=== PATIENT | male | born 1935 | race Caucasian/White ===

== ENCOUNTER 2020-09-01 14:26 | Emergency (ER) | payer MEDICARE, OTHER ==
[~2020-09-01] VITALS: Ht 177.8 cm; Wt 90.7 kg
[~2020-09-01 14:26] MED LIST: ASPI81EC PO; CYCL10 PO; DOXA4 PO; LISI20 PO; METO100ER PO; METO25 PO; MULVITMINF PO; NAPR250 PO; NITR.6SL SL; OMEP20ER PO; SENN187 PO; SIMV40 PO
[2020-09-01] MEDS ORDERED: COLCRYS0.6 MG (15:30)
== END 2020-09-01 16:14 | disposition home or self-care (01) ==
LOC: ER 14:26
DX: S72.051A Unspecified fracture of head of right femur, initial encounter for closed fracture (principal); I12.9 Hypertensive chronic kidney disease with stage 1 through stage 4 chronic kidney disease, or unspecified chronic kidney disease; N18.30 Chronic kidney disease, stage 3 unspecified; K21.9 Gastro-esophageal reflux disease without esophagitis; E78.5 Hyperlipidemia, unspecified; I25.810 Atherosclerosis of coronary artery bypass graft(s) without angina pectoris; Z88.8 Allergy status to other drugs, medicaments and biological substances; Z79.82 Long term (current) use of aspirin; Z79.899 Other long term (current) drug therapy; Z95.1 Presence of aortocoronary bypass graft; Z95.5 Presence of coronary angioplasty implant and graft; Z87.891 Personal history of nicotine dependence; W05.2XXA Fall from non-moving motorized mobility scooter, initial encounter
CPT/HCPCS: 99283

== ENCOUNTER 2020-09-30 14:13 | Emergency (ER) | payer OTHER, MEDICARE ==
[~2020-09-30] VITALS: Ht 177.8 cm; Wt 90.7 kg
[~2020-09-30 14:13] MED LIST changes: +COLCRYS0.6 MG
[2020-09-30 14:46] LABS: BASOPHILS ABSOLUTE AUTO 0.04 K/mm3 (0.00-0.23); BASOPHILS PERCENT AUTO 1 % (0-2); EOSINOPHILS ABSOLUTE AUTO 0.16 K/mm3 (0.00-0.68); EOSINOPHILS PERCENT AUTO 3 % (0-6); Hematocrit 48.2 % (37.0-53.0); IMMATURE GRAN ABSOLUTE AUTO 0.02 K/mm3 (0.00-0.10); IMMATURE GRAN PERCENT AUTO 0 % (0-1); LYMPHOCYTES ABSOLUTE AUTO 0.93 K/mm3 (0.84-5.20); LYMPHOCYTES PERCENT AUTO 17 % (21-46); MONOCYTES ABSOLUTE AUTO 0.62 K/mm3 (0.16-1.47); MONOCYTES PERCENT AUTO 12 % (4-13); Mean Corpuscular HGB 27.3 pg (26.0-34.0); Mean Corpuscular HGB Conc 31.1 g/dL (31.5-36.5); Mean Corpuscular Volume 88 fL (80-100); Mean Platelet Volume 11.5 fL (9.1-12.4); NEUTROPHILS ABSOLUTE AUTO 3.56 K/mm3 (1.96-9.15); NEUTROPHILS PERCENT AUTO 67 % (41-73); Platelet Count 159 K/mm3 (150-400); RDW Coefficient Variation 14.3 % (11.7-14.2); RDW Standard Deviation 46.2 fL (35.1-46.3); White Blood Cell Count 5.33 K/mm3 (4.00-11.30)
[2020-09-30 15:43] LABS: Alanine Aminotransfer (ALT/SGP 19 U/L (12-78); Albumin, Blood 3.5 g/dL (3.4-5.0); Albumin/Globulin Ratio 0.9 (0.8-1.8); Alk Phos 109 U/L (50-136); Anion Gap 4 mmol/L (6-16); Aspartate Aminotrans (AST/SGOT 25 U/L (12-37); Bilirubin, Total 0.4 mg/dL (0.1-1.0); Blood Urea Nitrogen 27 mg/dL (8-24); CO2, Blood 26 mmol/L (21-32); Calcium, Blood 9.1 mg/dL (8.5-10.1); Chloride, Blood 110 mmol/L (98-108); Creatinine, Blood 1.08 mg/dL (0.60-1.20); Glomerular Filtration Rate >60 (60-); Glucose, Blood 105 mg/dL (70-99); Potassium, Blood 4.8 mmol/L (3.5-5.5); Sodium, Blood 140 mmol/L (136-145); Total Protein, Blood 7.5 g/dL (6.4-8.2)
[2020-09-30] MEDS ORDERED: MECL25 PO (17:38)
== END 2020-09-30 18:20 | disposition home or self-care (01) ==
LOC: ER 14:13
PROVIDERS: Physician Assistant
DX: R42 Dizziness and giddiness (principal); I12.9 Hypertensive chronic kidney disease with stage 1 through stage 4 chronic kidney disease, or unspecified chronic kidney disease; N18.30 Chronic kidney disease, stage 3 unspecified; K21.9 Gastro-esophageal reflux disease without esophagitis; E78.5 Hyperlipidemia, unspecified; Z95.1 Presence of aortocoronary bypass graft; Z95.5 Presence of coronary angioplasty implant and graft; Z79.82 Long term (current) use of aspirin; Z87.891 Personal history of nicotine dependence; Z79.899 Other long term (current) drug therapy
CPT/HCPCS: 80053; 84484; 85025; 93005; 93010; 99284-25

== ENCOUNTER 2021-09-14 13:18 | Inpatient (IN) | payer OTHER ==
[~2021-09-14] VITALS: Ht 177.8 cm; Wt 83.8 kg
[~2021-09-14 13:18] MED LIST changes: -ASPI81EC PO; +Aspir 8181 MG PO; +CENTRUM SILVER1 EAC2 PO; -LISI20 PO; +MECL25 PO; -MULVITMINF PO
[2021-09-14 14:00] LABS: BASOPHILS ABSOLUTE AUTO 0.04 K/mm3 (0.00-0.23); BASOPHILS PERCENT AUTO 1 % (0-2); EOSINOPHILS ABSOLUTE AUTO 0.03 K/mm3 (0.00-0.68); EOSINOPHILS PERCENT AUTO 0 % (0-6); Hematocrit 38.8 % (37.0-53.0); Hemoglobin 12.4 g/dL (13.5-17.5); IMMATURE GRAN ABSOLUTE AUTO 0.03 K/mm3 (0.00-0.10); IMMATURE GRAN PERCENT AUTO 0 % (0-1); LYMPHOCYTES PERCENT AUTO 8 % (21-46); MONOCYTES ABSOLUTE AUTO 0.68 K/mm3 (0.16-1.47); MONOCYTES PERCENT AUTO 9 % (4-13); Mean Corpuscular HGB 27.1 pg (26.0-34.0); Mean Corpuscular Volume 85 fL (80-100); Mean Platelet Volume 10.8 fL (9.1-12.4); NEUTROPHILS ABSOLUTE AUTO 6.63 K/mm3 (1.96-9.15); NEUTROPHILS PERCENT AUTO 83 % (41-73); Platelet Count 212 K/mm3 (150-400); RDW Coefficient Variation 15.7 % (11.7-14.2); RDW Standard Deviation 48.9 fL (35.1-46.3); Red Blood Cell Count 4.57 M/mm3 (4.30-5.90); White Blood Cell Count 8.01 K/mm3 (4.00-11.30)
[2021-09-14 14:23] LABS: Alanine Aminotransfer (ALT/SGP 20 U/L (12-78); Albumin, Blood 2.6 g/dL (3.4-5.0); Albumin/Globulin Ratio 0.6 (0.8-1.8); Alk Phos 92 U/L (50-136); Anion Gap 7 mmol/L (6-16); Aspartate Aminotrans (AST/SGOT 34 U/L (12-37); Bilirubin, Total 0.4 mg/dL (0.1-1.0); Blood Urea Nitrogen 54 mg/dL (8-24); Bun/Creatinine Ratio 50.5 (12.0-20.0); CO2, Blood 24 mmol/L (21-32); Calcium, Blood 9.6 mg/dL (8.5-10.1); Chloride, Blood 109 mmol/L (98-108); Creatinine, Blood 1.07 mg/dL (0.60-1.20); Globulin, Blood 4.3 g/dL (2.2-4.0); Glomerular Filtration Rate >60 (60-); Glucose, Blood 116 mg/dL (70-99); Sodium, Blood 140 mmol/L (136-145); Total Protein, Blood 6.9 g/dL (6.4-8.2); Troponin I <0.015 ng/mL (0.000-0.040)
[2021-09-14 15:40] LABS: Source, Urine Clean Catch
[2021-09-14 15:58] LABS: Appearance, Urine Turbid (Clear); Bilirubin, Urine Neg (Neg); Blood, Urine 5+ (Neg); Color, Urine Brown (P-Yellow); Glucose Qualitative, Urine Neg (Neg); Ketones, Urine 2+ (Neg); Leukocyte Esterase, Urine 3+ (Neg); Nitrite, Urine Neg (Neg); Protein, Urine 3+ (Neg); Urobilinogen, Urine NORM (Normal)
[2021-09-14 16:39] LABS: Red Blood Cells, Urine 50-100 /hpf (0-2)
[2021-09-14 16:41] LABS: Bacteria Few /hpf; Squamous Epithelial Cells Few /hpf (Few)
[2021-09-14 18:48] LABS: SARS-Cov-2 (COVID-19) PCR, MMC NEGATIVE (NEGATIVE)
[2021-09-14 19:40] LABS: Creatine Kinase MB 13.1 ng/mL (0.0-3.6); Creatine Kinase MB Index 2.5 (0.0-4.0)
[2021-09-15 05:01] LABS: BASOPHILS ABSOLUTE AUTO 0.03 K/mm3 (0.00-0.23); BASOPHILS PERCENT AUTO 1 % (0-2); EOSINOPHILS ABSOLUTE AUTO 0.14 K/mm3 (0.00-0.68); EOSINOPHILS PERCENT AUTO 2 % (0-6); Hematocrit 37.4 % (37.0-53.0); Hemoglobin 11.9 g/dL (13.5-17.5); IMMATURE GRAN ABSOLUTE AUTO 0.02 K/mm3 (0.00-0.10); IMMATURE GRAN PERCENT AUTO 0 % (0-1); LYMPHOCYTES ABSOLUTE AUTO 0.59 K/mm3 (0.84-5.20); LYMPHOCYTES PERCENT AUTO 10 % (21-46); MONOCYTES ABSOLUTE AUTO 0.68 K/mm3 (0.16-1.47); MONOCYTES PERCENT AUTO 11 % (4-13); Mean Corpuscular HGB 26.8 pg (26.0-34.0); Mean Corpuscular HGB Conc 31.8 g/dL (31.5-36.5); Mean Corpuscular Volume 84 fL (80-100); Mean Platelet Volume 11.4 fL (9.1-12.4); NEUTROPHILS PERCENT AUTO 76 % (41-73); Platelet Count 194 K/mm3 (150-400); RDW Coefficient Variation 15.8 % (11.7-14.2); RDW Standard Deviation 48.6 fL (35.1-46.3); Red Blood Cell Count 4.44 M/mm3 (4.30-5.90); White Blood Cell Count 5.96 K/mm3 (4.00-11.30)
[2021-09-15 05:52] LABS: Alanine Aminotransfer (ALT/SGP 18 U/L (12-78); Albumin, Blood 2.2 g/dL (3.4-5.0); Albumin/Globulin Ratio 0.7 (0.8-1.8); Alk Phos 80 U/L (50-136); Anion Gap 9 mmol/L (6-16); Aspartate Aminotrans (AST/SGOT 41 U/L (12-37); Bilirubin, Total 0.5 mg/dL (0.1-1.0); Blood Urea Nitrogen 40 mg/dL (8-24); Bun/Creatinine Ratio 51.2 (12.0-20.0); CO2, Blood 23 mmol/L (21-32); Calcium, Blood 8.8 mg/dL (8.5-10.1); Chloride, Blood 112 mmol/L (98-108); Creatinine, Blood 0.78 mg/dL (0.60-1.20); Globulin, Blood 3.2 g/dL (2.2-4.0); Glomerular Filtration Rate >60 (60-); Glucose, Blood 88 mg/dL (70-99); Potassium, Blood 3.8 mmol/L (3.5-5.5); Sodium, Blood 144 mmol/L (136-145); Total Protein, Blood 5.4 g/dL (6.4-8.2)
--- NOTE | 2021-09-15 06:25 | NUR ---
PT RECEIVED FROM ED ON A STRETCHER. AA&OX2-3. PT IS ON RA WITH SATS IN THE LOW 90S.PT ADMITTED FOR RT LEG CELLULITIS. PT HAS A LOT OF BLISTERS AND OPEN SORES ON BLT EXTREMETIES. PT WAS GIVEN A PARTIAL BED BATH HE WAS DIRTY UPON ARRIVAL. OPEN WOUNDS CLEANED WITH WOUND BULK FOLDER, PICTURES TAKEN AND STORED IN PT CHART. PT HAS A STAGE 1 ULCER ON THE SACRUM. WOUND CLEANED AND COVERED WITH MEDIPLEX. IV ABX ADMINISTERED. FLUIDS PRESENTLY INFUSING. PT HAD A DARK COLOR URINE IN THE URINAL UPON ARRIVAL. URINE OUTPUT WAS 290ML. ADLS PROVIDED, SAFETY MEASURES IN PLACE. WILL CONTINUE TO MONITOR.
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
[2021-09-16 04:45] LABS: Hematocrit 38.1 % (37.0-53.0); Hemoglobin 12.1 g/dL (13.5-17.5); Mean Corpuscular HGB 26.8 pg (26.0-34.0); Mean Corpuscular HGB Conc 31.8 g/dL (31.5-36.5); Mean Corpuscular Volume 85 fL (80-100); Mean Platelet Volume 10.8 fL (9.1-12.4); Platelet Count 202 K/mm3 (150-400); RDW Standard Deviation 49.2 fL (35.1-46.3); Red Blood Cell Count 4.51 M/mm3 (4.30-5.90)
[2021-09-16 05:27] LABS: Alanine Aminotransfer (ALT/SGP 13 U/L (12-78); Albumin, Blood 2.2 g/dL (3.4-5.0); Albumin/Globulin Ratio 0.6 (0.8-1.8); Alk Phos 75 U/L (50-136); Anion Gap 8 mmol/L (6-16); Aspartate Aminotrans (AST/SGOT 32 U/L (12-37); Bilirubin, Total 0.4 mg/dL (0.1-1.0); Blood Urea Nitrogen 33 mg/dL (8-24); Bun/Creatinine Ratio 41.1 (12.0-20.0); CO2, Blood 24 mmol/L (21-32); CPK Creatine Kinase 269 U/L (39-308); Calcium, Blood 8.9 mg/dL (8.5-10.1); Chloride, Blood 111 mmol/L (98-108); Creatine Kinase MB 4.7 ng/mL (0.0-3.6); Creatine Kinase MB Index 1.7 (0.0-4.0); Globulin, Blood 3.4 g/dL (2.2-4.0); Glomerular Filtration Rate >60 (60-); Glucose, Blood 94 mg/dL (70-99); Potassium, Blood 3.6 mmol/L (3.5-5.5); Sodium, Blood 143 mmol/L (136-145); Total Protein, Blood 5.6 g/dL (6.4-8.2)
--- NOTE | 2021-09-16 07:44 | NUR ---
PATIENT REQUIRED APAP TWICE OVERNIGHT FOR BILAT. LEG PAIN (R>L) AND RIGHT HIP AND FOOT PAIN. R. LEG LOOKS ANGRY, BUT PATIENT SAID "LOOKS MUCH BETTER TO HIM" NO OTHER CHANGES NOTED
--- NOTE | 2021-09-16 18:25 | NUR ---
Alert and oriented x2 . C/O right hip pain 04/15 , tylenol 650 mg po was given, it was effective. vital signs are stable. Silvadene cream applied to right foot. Ordered a nystain cream for sores on groin area. Continue on ceftriaxone for cellulitis. Two persons extensive assist with bed mobility and repositioning . Call appropriately and call light within reach.Continue to monitor.
--- NOTE | 2021-09-17 04:58 | NUR ---
PT HAS BEEN RESTING FOR MOST OF THE NIGHT. C/O HIP PAIN TREATED PER EMAR. PT REMAINS ON BEDREST WITH ALARM ON. ALERT AND ORIENTED X4. PT SCROTAL ULCURS WERE TREATED PER EMAR WELL. IV REPLACED. NO OTHER EVENTS TRHOUGH THE NIGHT. BED IN LOW POSITION AND STAFF WILL CONT TO MONITOR.
--- NOTE | 2021-09-17 17:40 | NUR ---
SHIFT SUMMARY PATIENT ALERT AND ORIENTED THIS SHIFT. PATIENT IS A 1 ASSIST WITH FWW TO CHAIR AND COMODE. PATIENT UP TO CHAIR FOR MEALS, BACK TO BED BETWEEN MEALS. NO ACUTE CHANGES THIS SHIFT. WOUND CLINIC NURSE IN THE ROOM THIS AFTERNOON TO ASSESS AND DRESS PATIENT'S WOUNDS. PATIENT CURRENTLY SITTING UP IN BED WATCHING TELEVISION.
--- NOTE | 2021-09-18 03:53 | NUR ---
SHIFT SUMMARY JACOBO SLEPT MOST OF THE SHIFT. HE C/O BACK PAIN AND RECEIVED PRN TRAMADOL. HE HAS A HX OF FALLING, BED ALARM IN PLACE. PRESSURE ULCERS TO COCCYX AND SCROTUM. IV IN LEFT UPPER ARM. HE IS A&O 3-4, AWARE OF LOCATION/PERSON/EVENTS, BUT AWAITING PLACEMENT DUE TO INABILITY TO COMPLETE ADL'S INDEPENDENTLY. IV ACCESS IN LEFT UPPER ARM. BED ALARM IN PLACE, WILL CONTNUE TO MONITOR.
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
[2021-09-19 05:06] LABS: Hematocrit 36.3 % (37.0-53.0); Hemoglobin 11.5 g/dL (13.5-17.5); Mean Corpuscular HGB 26.9 pg (26.0-34.0); Mean Corpuscular HGB Conc 31.7 g/dL (31.5-36.5); Mean Corpuscular Volume 85 fL (80-100); Mean Platelet Volume 10.6 fL (9.1-12.4); Platelet Count 189 K/mm3 (150-400); RDW Coefficient Variation 15.9 % (11.7-14.2); RDW Standard Deviation 49.7 fL (35.1-46.3); Red Blood Cell Count 4.28 M/mm3 (4.30-5.90); White Blood Cell Count 7.02 K/mm3 (4.00-11.30)
[2021-09-19 05:36] LABS: Anion Gap 5 mmol/L (6-16); Blood Urea Nitrogen 25 mg/dL (8-24); Bun/Creatinine Ratio 29.8 (12.0-20.0); CO2, Blood 29 mmol/L (21-32); Calcium, Blood 8.3 mg/dL (8.5-10.1); Chloride, Blood 107 mmol/L (98-108); Creatinine, Blood 0.84 mg/dL (0.60-1.20); Glomerular Filtration Rate >60 (60-); Glucose, Blood 97 mg/dL (70-99); Potassium, Blood 3.7 mmol/L (3.5-5.5); Sodium, Blood 141 mmol/L (136-145)
--- NOTE | 2021-09-19 07:29 | NUR ---
SHIFT SUMMARY VSS. NO ACUTE CHANGES.
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
[2021-09-20 05:12] LABS: Hematocrit 36.1 % (37.0-53.0); Hemoglobin 11.6 g/dL (13.5-17.5); Mean Corpuscular HGB 26.9 pg (26.0-34.0); Mean Corpuscular HGB Conc 32.1 g/dL (31.5-36.5); Mean Corpuscular Volume 84 fL (80-100); Mean Platelet Volume 10.7 fL (9.1-12.4); Platelet Count 204 K/mm3 (150-400); RDW Coefficient Variation 15.7 % (11.7-14.2); RDW Standard Deviation 47.8 fL (35.1-46.3); Red Blood Cell Count 4.31 M/mm3 (4.30-5.90); White Blood Cell Count 6.19 K/mm3 (4.00-11.30)
[2021-09-20 06:14] LABS: Anion Gap 7 mmol/L (6-16); Blood Urea Nitrogen 26 mg/dL (8-24); Bun/Creatinine Ratio 32.2 (12.0-20.0); CO2, Blood 27 mmol/L (21-32); Calcium, Blood 8.6 mg/dL (8.5-10.1); Chloride, Blood 106 mmol/L (98-108); Creatinine, Blood 0.81 mg/dL (0.60-1.20); Glomerular Filtration Rate >60 (60-); Glucose, Blood 95 mg/dL (70-99); Potassium, Blood 3.8 mmol/L (3.5-5.5); Sodium, Blood 140 mmol/L (136-145)
--- NOTE | 2021-09-20 18:50 | NUR ---
SHIFT SUMMARY PT A/O X4; PLEASANT AND COOPERATIVE WITH CARE. ADMITTED WITH MULTIPLE WOUNDS/VASCULAR ULCERS AND CELLULITIS TO R LEG. PT ALSO HAS AN OLD R HIP FX THAT ORTHO HAS BEEN CONSULTED FOR. DR. NELSON CAME AND CONSULTED FOR THE VASCULAR ULCERS. POSSIBLE ANGIOGRAM TO BE DONE TOMORROW. VSS. WILL REPORT TO ABIMAEL ZAMORA.
--- NOTE | 2021-09-21 05:08 | NUR ---
SHIFT SUMMARY; AOX3, COOPERATIVE WITH CARE. RLE DRESSING STAYED DRY AND INTACT ALL NIGHT. C/O PAIN AND BURNING OFF AND ON IN THE RLE, ULTRAM GIVEN ACOUPLE OF TIMES WHICH HELPED TO RELEIVE IT. NPO AFTER MN FOR POSSIBLE ANGIOGRAM IN AM. REPOSITIONING OFTEN TO RELEIVE PRESSURE ON COCCYX. CONTINENT OF URINE WITH URINAL. VS WNL, AFEBRILE. WILL CONTINUE TO MONITOR AND PROVIDE CARE. CALL LIGHT IN REACH.
[2021-09-21 08:10] LABS: Hematocrit 36.1 % (37.0-53.0); Hemoglobin 11.6 g/dL (13.5-17.5); Mean Corpuscular HGB 27.2 pg (26.0-34.0); Mean Corpuscular HGB Conc 32.1 g/dL (31.5-36.5); Mean Corpuscular Volume 85 fL (80-100); Mean Platelet Volume 10.6 fL (9.1-12.4); Platelet Count 190 K/mm3 (150-400); RDW Coefficient Variation 15.6 % (11.7-14.2); RDW Standard Deviation 47.7 fL (35.1-46.3); Red Blood Cell Count 4.27 M/mm3 (4.30-5.90); White Blood Cell Count 6.17 K/mm3 (4.00-11.30)
[2021-09-21 08:32] LABS: Anion Gap 6 mmol/L (6-16); Blood Urea Nitrogen 25 mg/dL (8-24); Bun/Creatinine Ratio 32.5 (12.0-20.0); CO2, Blood 28 mmol/L (21-32); Calcium, Blood 8.7 mg/dL (8.5-10.1); Chloride, Blood 107 mmol/L (98-108); Creatinine, Blood 0.77 mg/dL (0.60-1.20); Glomerular Filtration Rate >60 (60-); Glucose, Blood 101 mg/dL (70-99); Potassium, Blood 3.6 mmol/L (3.5-5.5); Sodium, Blood 141 mmol/L (136-145)
--- NOTE | 2021-09-21 14:50 | NUR ---
PATIENT TO [facility] FOR ANGIO OF RLE. BELONGINGS REMAIN IN ROOM. WILL TRANFER TO PCU ROOM WHEN BED AVAILABLE.
--- NOTE | 2021-09-21 19:25 | NUR ---
TRANSFER NOTE RECEIVED REPORT FROM SERA SAMAYOA ON MEDICAL. BEDSIDE REPORT FROM TECHNOLOGY DEVELOPMENT INTERN, PT TO ROOM AT 1824. LEFT GROIN SITE C/D/I SCANT AMOUNT OF BLOOD NOTED; NO BLEEDING, BRUISING OR HEMATOMA NOTED. RIGHT PEDAL PULSE LANIE DRESSING HAS HALF DOLLAR SIZE BLOOD NOTED; NO CHANGES SINCE ADMITTED TO ROOM. PULSE FAINT BLE. VSS. NO OTHER ACUTE CHANGES NOTED DURING SHIFT. REPORT GIVEN TO RN ASSUMING CARE.
[2021-09-22 03:55] LABS: BASOPHILS ABSOLUTE AUTO 0.03 K/mm3 (0.00-0.23); BASOPHILS PERCENT AUTO 0 % (0-2); EOSINOPHILS ABSOLUTE AUTO 0.12 K/mm3 (0.00-0.68); EOSINOPHILS PERCENT AUTO 2 % (0-6); Hematocrit 34.7 % (37.0-53.0); Hemoglobin 11.2 g/dL (13.5-17.5); IMMATURE GRAN ABSOLUTE AUTO 0.02 K/mm3 (0.00-0.10); IMMATURE GRAN PERCENT AUTO 0 % (0-1); LYMPHOCYTES ABSOLUTE AUTO 0.86 K/mm3 (0.84-5.20); LYMPHOCYTES PERCENT AUTO 12 % (21-46); MONOCYTES ABSOLUTE AUTO 0.62 K/mm3 (0.16-1.47); MONOCYTES PERCENT AUTO 9 % (4-13); Mean Corpuscular HGB Conc 32.3 g/dL (31.5-36.5); Mean Corpuscular Volume 84 fL (80-100); Mean Platelet Volume 10.7 fL (9.1-12.4); NEUTROPHILS PERCENT AUTO 76 % (41-73); Platelet Count 179 K/mm3 (150-400); RDW Coefficient Variation 15.4 % (11.7-14.2); RDW Standard Deviation 46.9 fL (35.1-46.3); Red Blood Cell Count 4.15 M/mm3 (4.30-5.90); White Blood Cell Count 6.95 K/mm3 (4.00-11.30)
[2021-09-22 04:13] LABS: Alanine Aminotransfer (ALT/SGP 14 U/L (12-78); Albumin, Blood 1.8 g/dL (3.4-5.0); Albumin/Globulin Ratio 0.4 (0.8-1.8); Alk Phos 71 U/L (50-136); Anion Gap 7 mmol/L (6-16); Aspartate Aminotrans (AST/SGOT 18 U/L (12-37); Bilirubin, Total 0.3 mg/dL (0.1-1.0); Blood Urea Nitrogen 25 mg/dL (8-24); Bun/Creatinine Ratio 31.4 (12.0-20.0); CO2, Blood 25 mmol/L (21-32); Calcium, Blood 8.8 mg/dL (8.5-10.1); Chloride, Blood 106 mmol/L (98-108); Globulin, Blood 4.1 g/dL (2.2-4.0); Glomerular Filtration Rate >60 (60-); Glucose, Blood 109 mg/dL (70-99); Potassium, Blood 3.5 mmol/L (3.5-5.5); Sodium, Blood 138 mmol/L (136-145); Total Protein, Blood 5.9 g/dL (6.4-8.2)
--- NOTE | 2021-09-22 05:41 | NUR ---
SHIFT SUMMARY ASSUMED CARE OF PT AT 1900. PT IS A/OX3 WITH TIMES OF CONFUSION. HEART SOUNDS REGULAR, LUNG SOUNDS CLEAR. PT WAS CONTIENT OF URINE. ABD IS DISTENDED AND FIRM, PT STATES THAT HE FEELS LIKE HE HAS GAS, PT DID HAVE A BM THIS SHIFT. PT HAS WOUNDS ON HIS COPCCYX AND SCROTUM. MEPILEX APPLIED. PT HAS N/T IN LOWER EXTREMITES. PULSES ARE FAINT. PT HAS EXTENSIVE WOUNDS ON HIS LEGS, PICTURES IN CHART. NEW DRESSINGS APPLIED. ANGIO SITES ON L GROIN AND R FOOT HAVE MINIMAL DRAINAGE. PT C/O PAIN IN R LEG, MEDICATED PER EMAR. PT HAS A TEMP OF 100.3 THIS AM, PT WAS COOLED DOWN WITH A FAN AND ICE AND IS NOW AT 98.8. CALL LIGHT IN REACH, BED IN LOWEST POSITION, BED ALARM ON.
--- NOTE | 2021-09-22 11:37 | NUR ---
INITIAL ASSESSMENT: Patient is awake, alert, and oriented. Patient C/O minimal 2/10 lower back pain. HRR. LS dim t/o, biox wnl on ra. BT +. PPP, faint and thready to RLE via doppler. Patient has bulky gaze dressing with jermaine wrap CDI to RLE. shilpa dressing with opsite to right pedal area, moderate amount of dried blood noted. VSS. Patient denies other needs at this time. Call light in reach. Will continue to monitor.
--- NOTE | 2021-09-22 16:57 | NUR ---
SHIFT SUMMARY: PATIENT HAS BEEN RESTING IN BED T/O SHIFT WITH NO ADVERSE EVENTS. PROMOTED TO MED STATUS THIS AFTERNOON. PAIN CONTROLLED. REPORTS ITCHING OF LEG. FAMILY MEMBER CAME TO VISIT THIS AFTERNOON. WILL LIKELY D/C TO [facility] REQUIRES MORE SUPPORT THAN CAN BE PROVIDED IN HOME A FEW TIMES A WEEK.
--- NOTE | 2021-09-22 19:00 | NUR ---
DAY SHIFT SUMMARY PCU TRANSFER TO MED FLOOR, REPORT TAKEN BY KAYLEE ZAMORA. PT PLEASANT ON ARRIVAL, ALERT/ORIENTED, STATES HE HOPES HE CAN GET SOME SLEEP. ORIENTED TO ROOM AND SURROUNDINGS.
--- NOTE | 2021-09-23 06:03 | NUR ---
SHIFT SUMMARY PATIENT ALERT AND ORIENTED. HAD NO COMPLAINTS OF PAIN OR SHORTNESS OF BREATH. SLEPT WELL. NO ACUTE ISSUES NOTED OVERNIGHT. CALL LIGHT WITHIN REACH. REPORT GIVEN TO ONCOMING RN.
--- NOTE | 2021-09-23 08:00 | NUR ---
pt laying in bed awake, a/ox3, pleasant and cooperative with care, follows commands well, reports some pain to rle, lungs are clear in uppers and dim in bases, resp even and unlabored, no cough noted, hrr, tele in place running sr with pac's and pvc's per monitor, see strip, no edema noted, ppp faint cap refill <3sec, vs stable, afebrile, piv site is clear and patent, s.l. btx4, abd flat soft nontender, voids without diff, skin c/w/d, maew, rodolfo, call light in reach.
[2021-09-23 09:02] LABS: BASOPHILS ABSOLUTE AUTO 0.03 K/mm3 (0.00-0.23); BASOPHILS PERCENT AUTO 0 % (0-2); EOSINOPHILS ABSOLUTE AUTO 0.18 K/mm3 (0.00-0.68); EOSINOPHILS PERCENT AUTO 2 % (0-6); Hematocrit 34.8 % (37.0-53.0); Hemoglobin 11.1 g/dL (13.5-17.5); IMMATURE GRAN ABSOLUTE AUTO 0.03 K/mm3 (0.00-0.10); IMMATURE GRAN PERCENT AUTO 0 % (0-1); LYMPHOCYTES ABSOLUTE AUTO 0.89 K/mm3 (0.84-5.20); LYMPHOCYTES PERCENT AUTO 11 % (21-46); MONOCYTES ABSOLUTE AUTO 0.73 K/mm3 (0.16-1.47); MONOCYTES PERCENT AUTO 9 % (4-13); Mean Corpuscular HGB 26.9 pg (26.0-34.0); Mean Corpuscular HGB Conc 31.9 g/dL (31.5-36.5); Mean Corpuscular Volume 84 fL (80-100); Mean Platelet Volume 11.4 fL (9.1-12.4); NEUTROPHILS ABSOLUTE AUTO 5.97 K/mm3 (1.96-9.15); NEUTROPHILS PERCENT AUTO 76 % (41-73); Platelet Count 185 K/mm3 (150-400); RDW Coefficient Variation 15.4 % (11.7-14.2); RDW Standard Deviation 47.2 fL (35.1-46.3); Red Blood Cell Count 4.13 M/mm3 (4.30-5.90); White Blood Cell Count 7.83 K/mm3 (4.00-11.30)
[2021-09-23 09:19] LABS: Anion Gap 7 mmol/L (6-16); Blood Urea Nitrogen 24 mg/dL (8-24); Bun/Creatinine Ratio 31.3 (12.0-20.0); CO2, Blood 26 mmol/L (21-32); Chloride, Blood 106 mmol/L (98-108); Creatinine, Blood 0.77 mg/dL (0.60-1.20); Glomerular Filtration Rate >60 (60-); Glucose, Blood 100 mg/dL (70-99); Potassium, Blood 3.5 mmol/L (3.5-5.5); Sodium, Blood 139 mmol/L (136-145)
[2021-09-23] MEDS ORDERED: ACET325 PO (10:49)
[2021-09-23] MEDS ORDERED: ATOR40TA PO (10:49)
[2021-09-23] MEDS ORDERED: IBUP800 PO (10:50)
[2021-09-23] MEDS ORDERED: LEVFLO500 PO (10:52)
[2021-09-23 10:53] LABS: Influenza A, PCR NEGATIVE (NEGATIVE); Influenza B, PCR NEGATIVE (NEGATIVE); Resp Syncytial Virus, PCR NEGATIVE (NEGATIVE); SARS-Cov-2 (COVID-19) PCR, MMC NEGATIVE (NEGATIVE)
[2021-09-23] MEDS ORDERED: NYSTATIN15 GM TOP (10:53)
[2021-09-23] MEDS ORDERED: PROM25 PO (10:54)
[2021-09-23] MEDS ORDERED: TRAM50 PO (11:01)
[2021-09-23] MEDS ORDERED: TAMS.4ER PO (11:37)
[2021-09-23] MEDS ORDERED: SILVADENE20 G3 TOP (11:39)
[2021-09-23] MEDS ORDERED: METOPROLOL TART50 M3 PO (11:43)
[2021-09-23] MEDS ORDERED: GABA300 PO (11:44)
[2021-09-23] MEDS ORDERED: DICLOFENAC SOD100 G1 TOP (11:46)
[2021-09-23] MEDS ORDERED: Vitamin B-121000 MCG PO (11:46)
[2021-09-23] MEDS ORDERED: Vitamin D1000 UNI1 PO (11:47)
--- NOTE | 2021-09-23 15:31 | NUR ---
PT WAS TO BE TRANSFERED TO SNF, BUT WILL NEED TO WAIT FOR INSURANCE APPROVAL, CALL LIGHT IN REACH.
--- NOTE | 2021-09-23 19:02 | NUR ---
pt has pain in right le, has been medicated for it several times today. speaking on the phone this evening. no acute changes this shift. call light in reach.
--- NOTE | 2021-09-24 05:25 | NUR ---
SHIFT SUMMARY PATIENT ALERT AND ORIENTED. HAD NO COMPLAINTS OF PAIN OR SHORTNESS OF BREATH. NO ACUTE ISSUES NOTED OVERNIGHT. CALL LIGHT WITHIN REACH. REPORT GIVEN TO ONCOMING RN.
[2021-09-24 14:12] LABS: Influenza A, PCR NEGATIVE (NEGATIVE); Influenza B, PCR NEGATIVE (NEGATIVE); Resp Syncytial Virus, PCR NEGATIVE (NEGATIVE); SARS-Cov-2 (COVID-19) PCR, MMC NEGATIVE (NEGATIVE)
--- NOTE | 2021-09-24 15:36 | NUR ---
DISCHARGE NOTE PT IS AOX4. PT IV REMOVED BY THIS RN PER DOCUMENTATION. PT DC PAPERWORK COMPLETED BY STRAND GALVANIZER. VERBAL ORDERS WRITTEN AND SIGNED BY PHYSICIAN FOR SOME DC MEDICATIONS AND PLACED ON CHART. [facility] AND GAVE REPORT TO SERA MARIA ON PT STATUS. PT ASSISTED INTO WHEELCHAIR BY MOHS SURGEON/GENERAL DERMATOLOGIST. PT BELONGINGS GATHERED AND SENT WITH TRANSP[facility]TER AND [facility] TO [facility]. [facility].
== END 2021-09-24 15:55 | disposition home or self-care (01) | DRG 253 ==
LOC: ER 13:18 → PCU 17:37 → MEDS 17:37 → PCU 09-21 15:47 → MEDS 09-22 17:55
PROVIDERS: Emergency Medicine; Internal Medicine; ADMIT Internal Medicine
PROC: 047K3Z1 Dilation of Right Femoral Artery using Drug-Coated Balloon, Percutaneous Approach (ICD-10-PCS; principal; 2021-09-21)
PROC: 047M3Z1 Dilation of Right Popliteal Artery using Drug-Coated Balloon, Percutaneous Approach (ICD-10-PCS; 2021-09-21)
PROC: 04FM3ZZ Fragmentation of Right Popliteal Artery, Percutaneous Approach (ICD-10-PCS; 2021-09-21)
DX: I70.221 Atherosclerosis of native arteries of extremities with rest pain, right leg (principal); L03.116 Cellulitis of left lower limb; M87.9 Osteonecrosis, unspecified; M62.82 Rhabdomyolysis; M87.88 Other osteonecrosis, other site; Z16.29 Resistance to other single specified antibiotic; N39.0 Urinary tract infection, site not specified; L03.115 Cellulitis of right lower limb; G93.49 Other encephalopathy; I70.201 Unspecified atherosclerosis of native arteries of extremities, right leg; D63.8 Anemia in other chronic diseases classified elsewhere; I10 Essential (primary) hypertension; B96.20 Unspecified Escherichia coli [E. coli] as the cause of diseases classified elsewhere; N18.30 Chronic kidney disease, stage 3 unspecified; K21.9 Gastro-esophageal reflux disease without esophagitis; M10.9 Gout, unspecified; I73.9 Peripheral vascular disease, unspecified; I12.9 Hypertensive chronic kidney disease with stage 1 through stage 4 chronic kidney disease, or unspecified chronic kidney disease; E78.5 Hyperlipidemia, unspecified; N40.0 Benign prostatic hyperplasia without lower urinary tract symptoms; Z85.51 Personal history of malignant neoplasm of bladder; Z95.1 Presence of aortocoronary bypass graft; Z98.890 Other specified postprocedural states; W18.30XA Fall on same level, unspecified, initial encounter; E86.0 Dehydration
CPT/HCPCS: 0241U; 36415; 70450; 71045; 73502; 73562-RT; 75625; 75710; 75716; 76937; 80048; 80053; 81001; 82550; 82553; 83880; 84443; 84484; 85025; 85027; 85347; 87077; 87086; 87186; 93005; 93010; 93880; 93926; 96365; 96367; 97110; 97116; 97162; 97166; 97530; 97535; 99152; 99153; 99285-25; A9270; C1725; C1760; C1769; C1887; C1894; C2623; C9764; J0690; J0696; J1644; J1650; J2250; J3010; J7030; J7050; Q9967; U0004

== ENCOUNTER 2021-10-16 08:27 | Inpatient (IN) | payer OTHER ==
[~2021-10-16] VITALS: Ht 177.8 cm; Wt 80.0 kg
[~2021-10-16 08:27] MED LIST changes: +ACET325 PO; +ATOR40TA PO; +DICLOFENAC SOD100 G1 TOP; +GABA300 PO; +IBUP800 PO; +LEVFLO500 PO; +METOPROLOL TART50 M3 PO; +NYSTATIN15 GM TOP; +PROM25 PO; +SILVADENE20 G3 TOP; +TAMS.4ER PO; +TRAM50 PO; +Vitamin B-121000 MCG PO; +Vitamin D1000 UNI1 PO
[2021-10-16 09:20] LABS: BASOPHILS ABSOLUTE AUTO 0.04 K/mm3 (0.00-0.23); BASOPHILS PERCENT AUTO 0 % (0-2); EOSINOPHILS PERCENT AUTO 1 % (0-6); Hematocrit 34.9 % (37.0-53.0); IMMATURE GRAN ABSOLUTE AUTO 0.06 K/mm3 (0.00-0.10); IMMATURE GRAN PERCENT AUTO 1 % (0-1); LYMPHOCYTES PERCENT AUTO 5 % (21-46); MONOCYTES ABSOLUTE AUTO 0.73 K/mm3 (0.16-1.47); MONOCYTES PERCENT AUTO 6 % (4-13); Mean Corpuscular HGB 26.4 pg (26.0-34.0); Mean Corpuscular HGB Conc 31.5 g/dL (31.5-36.5); Mean Corpuscular Volume 84 fL (80-100); Mean Platelet Volume 11.5 fL (9.1-12.4); NEUTROPHILS ABSOLUTE AUTO 10.53 K/mm3 (1.96-9.15); NEUTROPHILS PERCENT AUTO 87 % (41-73); Platelet Count 203 K/mm3 (150-400); RDW Coefficient Variation 15.4 % (11.7-14.2); RDW Standard Deviation 46.6 fL (35.1-46.3); Red Blood Cell Count 4.16 M/mm3 (4.30-5.90); White Blood Cell Count 12.06 K/mm3 (4.00-11.30)
[2021-10-16 09:37] LABS: Source, Urine Catheter
[2021-10-16 09:42] LABS: Albumin, Blood 2.4 g/dL (3.4-5.0); Albumin/Globulin Ratio 0.6 (0.8-1.8); Bilirubin, Total 0.5 mg/dL (0.1-1.0); Bun/Creatinine Ratio 32.8 (12.0-20.0); Creatinine, Blood 1.19 mg/dL (0.60-1.20); Globulin, Blood 4.3 g/dL (2.2-4.0); Potassium, Blood 4.8 mmol/L (3.5-5.5); Total Protein, Blood 6.7 g/dL (6.4-8.2)
[2021-10-16 09:44] LABS: Bilirubin, Urine Neg (Neg); Blood, Urine 5+ (Neg); Glucose Qualitative, Urine Neg (Neg); Ketones, Urine Neg (Neg); Leukocyte Esterase, Urine 3+ (Neg); Nitrite, Urine Neg (Neg); Protein, Urine 3+ (Neg); Specific Gravity, Urine 1.015 (1.003-1.022); Urobilinogen, Urine NORM (Normal)
[2021-10-16 09:49] LABS: Appearance, Urine Cloudy (Clear); Color, Urine Yellow (P-Yellow)
[2021-10-16 09:51] LABS: Bacteria Few /hpf; Red Blood Cells, Urine TNTC /hpf (0-2); Squamous Epithelial Cells Rare /hpf (Few)
[2021-10-16 16:39] LABS: Influenza A, PCR NEGATIVE (NEGATIVE); Influenza B, PCR NEGATIVE (NEGATIVE); Resp Syncytial Virus, PCR NEGATIVE (NEGATIVE); SARS-Cov-2 (COVID-19) PCR, MMC NEGATIVE (NEGATIVE)
--- NOTE | 2021-10-16 18:12 | NUR ---
SHIFT SUMMARY PATIENT ADMITTED FROM ER AT 1600. PATIENT SETTLED INTO ROOM. PATIENT MEDICATED X1 FOR PAIN. PATIENT DENIED NAUSEA AND SHORTNESS OF BREATH. COVID TEST WAS NEGATIVE. PATIENT ON 2L VIA N/C AND MAINTAINING SATS AT 95%. 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 PATIENT TELE RUNNING AT SR WITH A BBB, 1ST DEGREE HEART BLOCK, PVC'S, AND PAC'S AT 82. PATIENT USES THE URINAL INDEPENDENTLY. PATIENT IS EATING AND DRINKING WELL. PICTURES OF WOUNDS TO PATIENT RIGHT LEG AND SACRUM TAKEN AND PUT IN HIS CHART. CONSENTS SIGNED.
[2021-10-17 04:45] LABS: Hematocrit 32.4 % (37.0-53.0); Hemoglobin 10.4 g/dL (13.5-17.5); Mean Corpuscular HGB 26.7 pg (26.0-34.0); Mean Corpuscular HGB Conc 32.1 g/dL (31.5-36.5); Mean Corpuscular Volume 83 fL (80-100); Mean Platelet Volume 11.5 fL (9.1-12.4); Platelet Count 177 K/mm3 (150-400); RDW Coefficient Variation 15.3 % (11.7-14.2); RDW Standard Deviation 46.2 fL (35.1-46.3); White Blood Cell Count 7.81 K/mm3 (4.00-11.30)
[2021-10-17 05:45] LABS: Alanine Aminotransfer (ALT/SGP 11 U/L (12-78); Albumin/Globulin Ratio 0.6 (0.8-1.8); Alk Phos 66 U/L (50-136); Anion Gap 7 mmol/L (6-16); Aspartate Aminotrans (AST/SGOT 12 U/L (12-37); Bilirubin, Total 0.4 mg/dL (0.1-1.0); Blood Urea Nitrogen 38 mg/dL (8-24); Bun/Creatinine Ratio 39.5 (12.0-20.0); CO2, Blood 25 mmol/L (21-32); Calcium, Blood 8.8 mg/dL (8.5-10.1); Chloride, Blood 107 mmol/L (98-108); Creatinine, Blood 0.96 mg/dL (0.60-1.20); Globulin, Blood 3.3 g/dL (2.2-4.0); Glomerular Filtration Rate >60 (60-); Glucose, Blood 90 mg/dL (70-99); Potassium, Blood 4.7 mmol/L (3.5-5.5); Sodium, Blood 139 mmol/L (136-145); Total Protein, Blood 5.3 g/dL (6.4-8.2)
--- NOTE | 2021-10-17 06:09 | NUR ---
SHIFT ASSESSMENT: PATIENT IS RESISTANT TO T&P. REPORTING PAIN IN RIGHT LOWER LEG REQUIRING OCCASSIONAL MEDICATION. TYLENOL AND TRAMADOL ARE ALTERNATED FOR GOOD PAIN CONTROL. RIGHT LEG IS ELVATED. IV ACCESS WAS LOST DUE TO LEAKING. JIGGER CROWN POUNCING MACHINE OPERATOR FAILED AFTER TWO ATTEMPS. CHARGE NURSE BISMARK PHILLIP RN WAS MADE AWARE. PATIENT IS VOIDING IN THE URINAL IMNDEPENDANTLY. BED ALARM IS ON.
--- NOTE | 2021-10-17 18:31 | NUR ---
SHIFT SUMMARY PATIENT MEDICATED FOR PAIN X2. ONCE FOR PAIN IN LEG, ONCE FOR CHEST PAIN. AT 1815 PATIENT COMPLAINED OF SHORTNESS OF BREATH AND CHEST PAIN. TELE CONFIRMED PATIENT IN SR AT 72, HE HAD CONVERTED FROM AFIB A FEW HOURS PRIOR, BUT FISHER PURSE SEINE NOTED SOME ST CHANGES. DR. POMPA NOTIFIED. NEW ORDERS FOR 12 LEAD EKG, TROPONIN X1, NITROGLYCERIN X1, AND 2MG MORPHINE. EKG DONE AT 1625. NITRO ADMINISTERED, PATIENT REPORTS CHEST PAIN DECREASED. DR. POMPA NOTIFIED. PATIENT TITRATED TO ROOM AIR TODAY, SATURATING AT 97%. PATIENT IS EATING AND DRINKING WELL. PATIENT HAD A VISITOR THIS AFTERNOON. PATIENT IS PLEASANT AND COOPERATIVE WITH CARE.
--- NOTE | 2021-10-18 04:15 | NUR ---
PATIENT WAS ALERT AND ORIENTED X4 ON ROOM AIR. PATIENT HAD A BOWEL MOVEMENT AT THE BEGINING OF THE SHIFT AND COMPLAINED OF PAIN IN HIS FOOT. PATIENT WAS TREATED WITH TRAMADOL. PATIENT HAD A TROPONIN OF 0.135 AND 2ND TROPONIN OF 0.138, POSSIBLE HEPARIN PENDING DOCTOR'S ORDERS
[2021-10-18 04:56] LABS: Hematocrit 33.4 % (37.0-53.0); Hemoglobin 10.6 g/dL (13.5-17.5); Mean Corpuscular HGB 26.5 pg (26.0-34.0); Mean Corpuscular HGB Conc 31.7 g/dL (31.5-36.5); Mean Corpuscular Volume 84 fL (80-100); Mean Platelet Volume 11.3 fL (9.1-12.4); Platelet Count 171 K/mm3 (150-400); RDW Coefficient Variation 15.1 % (11.7-14.2); RDW Standard Deviation 46.2 fL (35.1-46.3); White Blood Cell Count 7.76 K/mm3 (4.00-11.30)
[2021-10-18 05:47] LABS: Alanine Aminotransfer (ALT/SGP 14 U/L (12-78); Albumin, Blood 2.1 g/dL (3.4-5.0); Albumin/Globulin Ratio 0.6 (0.8-1.8); Alk Phos 71 U/L (50-136); Anion Gap 9 mmol/L (6-16); Aspartate Aminotrans (AST/SGOT 14 U/L (12-37); Bilirubin, Total 0.4 mg/dL (0.1-1.0); Blood Urea Nitrogen 32 mg/dL (8-24); CO2, Blood 24 mmol/L (21-32); Calcium, Blood 8.9 mg/dL (8.5-10.1); Chloride, Blood 105 mmol/L (98-108); Creatinine, Blood 0.89 mg/dL (0.60-1.20); Globulin, Blood 3.4 g/dL (2.2-4.0); Glomerular Filtration Rate >60 (60-); Glucose, Blood 93 mg/dL (70-99); Potassium, Blood 4.2 mmol/L (3.5-5.5); Sodium, Blood 138 mmol/L (136-145); Total Protein, Blood 5.5 g/dL (6.4-8.2); Troponin I 0.119 ng/mL (0.000-0.040)
--- NOTE | 2021-10-18 13:06 | NUR ---
Echocardiogram completed.
--- NOTE | 2021-10-18 17:09 | NUR ---
SHIFT SUMMARY PATIENT DENIES PAIN, NAUSEA, SHORTNESS OF BREATH. PATIENT IS ON BEDREST. PATIENT REPORTED SOME CONSTIPATION, NOTIFIED DR. POMPA. NEW ORDERS FOR DOCUSATE. CONSULT CALLED INTO DR. MCCOY. HE SAW PATIENT THIS AFTERNOON. PATIENT SATURATING IN THE MID 90'S ON ROOM AIR. PATIENT IS EATING AND DRINKING WELL. CONTINUES TO HAVE DARK URINE. PATIENT IS PLEASANT AND COOPERATIVE WITH CARE.
[2021-10-19 04:49] LABS: Hemoglobin 11.6 g/dL (13.5-17.5); Mean Corpuscular HGB 26.2 pg (26.0-34.0); Mean Corpuscular HGB Conc 32.2 g/dL (31.5-36.5); Mean Corpuscular Volume 81 fL (80-100); Mean Platelet Volume 11.2 fL (9.1-12.4); Platelet Count 196 K/mm3 (150-400); RDW Coefficient Variation 14.9 % (11.7-14.2); Red Blood Cell Count 4.42 M/mm3 (4.30-5.90); White Blood Cell Count 7.26 K/mm3 (4.00-11.30)
--- NOTE | 2021-10-19 04:50 | NUR ---
PATIENT WAS ALERT AND ORIENTED X3, STABLE VITALS, PT COMPLAINED OF PAIN IN HIS RIGHT LEGS AND WAS TRETAED WITH A PAIN MED. PT REQUESTED ASSISTED TO GET OUT OF BED TO USE THE REST ROOM BUT PT WAS REMINDED HE IS ON BEDREST AND WAS ENCOURAGED TO USE A BED MIRAMONTES OR URINAL.PT DENIES ANY SOB
[2021-10-19 05:50] LABS: Anion Gap 8 mmol/L (6-16); Blood Urea Nitrogen 23 mg/dL (8-24); Bun/Creatinine Ratio 28.8 (12.0-20.0); CO2, Blood 26 mmol/L (21-32); Calcium, Blood 9.2 mg/dL (8.5-10.1); Chloride, Blood 105 mmol/L (98-108); Glomerular Filtration Rate >60 (60-); Glucose, Blood 101 mg/dL (70-99); Potassium, Blood 4.5 mmol/L (3.5-5.5); Sodium, Blood 139 mmol/L (136-145)
[2021-10-19] MEDS ORDERED: ALBU2.5V5 INH (10:36)
[2021-10-19] MEDS ORDERED: AZIT500 PO (10:37)
[2021-10-19] MEDS ORDERED: AMLO5 PO (10:37)
[2021-10-19] MEDS ORDERED: METO25ER PO (10:38)
[2021-10-19] MEDS ORDERED: CLOP75 PO (10:38)
[2021-10-19] MEDS ORDERED: GUAI600T33 PO (10:38)
[2021-10-19] MEDS ORDERED: DOCU100 PO (10:38)
[2021-10-19] MEDS ORDERED: PANT20 PO (10:39)
[2021-10-19 10:48] LABS: Influenza A, PCR NEGATIVE (NEGATIVE); Influenza B, PCR NEGATIVE (NEGATIVE); Resp Syncytial Virus, PCR NEGATIVE (NEGATIVE); SARS-Cov-2 (COVID-19) PCR, MMC NEGATIVE (NEGATIVE)
[2021-10-19] MEDS ORDERED: LISI20 PO (12:57)
--- NOTE | 2021-10-19 14:42 | NUR ---
DISCHARGE NOTE THIS RN REMOVED PT IV PER DOCUMENTATION. THIS RN [facility] TO [facility] AND SPOKE WITH SERA BRADEN. PT BELONGINGS GATHERED FROM ROOM. PT ASSISTED INTO WHEELCHAIR BY THIS RN AND PUBLIC OPINION SURVEY TAKER. [facility] TO [facility] WITH BELONGINGS AND PAPERWORK. PT HAS LEFT BUILDING.
== END 2021-10-19 13:44 | DRG 871 ==
LOC: ER 08:27 → ERHOLD 10:52 → MEDS 10:52
PROVIDERS: Emergency Medicine; ADMIT Internal Medicine
DX: A41.9 Sepsis, unspecified organism (principal); J18.9 Pneumonia, unspecified organism; I21.A1 Myocardial infarction type 2; N39.0 Urinary tract infection, site not specified; M87.851 Other osteonecrosis, right femur; L97.419 Non-pressure chronic ulcer of right heel and midfoot with unspecified severity; L97.819 Non-pressure chronic ulcer of other part of right lower leg with unspecified severity; Z20.822 Contact with and (suspected) exposure to COVID-19; M10.9 Gout, unspecified; N18.30 Chronic kidney disease, stage 3 unspecified; I12.9 Hypertensive chronic kidney disease with stage 1 through stage 4 chronic kidney disease, or unspecified chronic kidney disease; I48.0 Paroxysmal atrial fibrillation; K21.9 Gastro-esophageal reflux disease without esophagitis; I25.10 Atherosclerotic heart disease of native coronary artery without angina pectoris; I73.9 Peripheral vascular disease, unspecified; E78.5 Hyperlipidemia, unspecified; Z28.09 Immunization not carried out because of other contraindication; N40.0 Benign prostatic hyperplasia without lower urinary tract symptoms; G47.33 Obstructive sleep apnea (adult) (pediatric); Z88.8 Allergy status to other drugs, medicaments and biological substances; Z79.82 Long term (current) use of aspirin; Z74.01 Bed confinement status; Z79.899 Other long term (current) drug therapy; Z95.5 Presence of coronary angioplasty implant and graft; Z95.1 Presence of aortocoronary bypass graft; Z98.890 Other specified postprocedural states; Z95.2 Presence of prosthetic heart valve
CPT/HCPCS: 0241U; 36415; 71045; 71260; 80048; 80053; 81001; 83605; 84484; 85025; 85027; 87040; 87070; 87077; 87086; 87186; 87205; 93005; 93010; 93306; 94760; 94762; 96365; 96367; 99285-25; A9270; C9113; J0456; J0696; J1650; J2270; J7030; J7050; Q9967

== ENCOUNTER 2021-12-27 09:39 | Inpatient (IN) | payer OTHER ==
[~2021-12-27] VITALS: Ht 177.8 cm; Wt 73.3 kg
[~2021-12-27 09:39] MED LIST changes: +ALBU2.5V5 INH; +AMLO5 PO; +AZIT500 PO; +CLOP75 PO; +DOCU100 PO; +GUAI600T33 PO; +LISI20 PO; +METO50ER PO; +PANT20 PO
[2021-12-27 10:36] LABS: BASOPHILS ABSOLUTE AUTO 0.04 K/mm3 (0.00-0.23); BASOPHILS PERCENT AUTO 1 % (0-2); EOSINOPHILS ABSOLUTE AUTO 0.28 K/mm3 (0.00-0.68); EOSINOPHILS PERCENT AUTO 6 % (0-6); Hematocrit 34.8 % (37.0-53.0); Hemoglobin 10.9 g/dL (13.5-17.5); IMMATURE GRAN ABSOLUTE AUTO 0.01 K/mm3 (0.00-0.10); IMMATURE GRAN PERCENT AUTO 0 % (0-1); LYMPHOCYTES ABSOLUTE AUTO 1.47 K/mm3 (0.84-5.20); LYMPHOCYTES PERCENT AUTO 29 % (21-46); MONOCYTES ABSOLUTE AUTO 0.49 K/mm3 (0.16-1.47); MONOCYTES PERCENT AUTO 10 % (4-13); Mean Corpuscular HGB 26.3 pg (26.0-34.0); Mean Corpuscular HGB Conc 31.3 g/dL (31.5-36.5); Mean Corpuscular Volume 84 fL (80-100); Mean Platelet Volume 11.6 fL (9.1-12.4); NEUTROPHILS ABSOLUTE AUTO 2.71 K/mm3 (1.96-9.15); NEUTROPHILS PERCENT AUTO 54 % (41-73); Platelet Count 182 K/mm3 (150-400); RDW Coefficient Variation 18.3 % (11.7-14.2); RDW Standard Deviation 55.3 fL (35.1-46.3); Red Blood Cell Count 4.15 M/mm3 (4.30-5.90)
[2021-12-27 10:48] LABS: Albumin, Blood 2.9 g/dL (3.4-5.0); Albumin/Globulin Ratio 0.8 (0.8-1.8); Bilirubin, Total 0.4 mg/dL (0.1-1.0); Bun/Creatinine Ratio 20.8 (12.0-20.0); Creatinine, Blood 1.44 mg/dL (0.60-1.20); Globulin, Blood 3.5 g/dL (2.2-4.0); Potassium, Blood 4.6 mmol/L (3.5-5.5); Total Protein, Blood 6.4 g/dL (6.4-8.2)
[2021-12-27 13:41] LABS: International Normalized Ratio 1.01; Prothrombin Time Results 10.6 Sec (9.7-11.5)
--- NOTE | 2021-12-27 17:00 | NUR ---
Echocardiogram completed.
--- NOTE | 2021-12-27 18:08 | NUR ---
SHIFT SUMMARY PATIENT ADMITTED FROM ER AT 1710. PATIENT SETTLED INTO ROOM. PATIENT DENIES CHEST PAIN, NAUSEA, AND SHORTNESS OF BREATH. PATIENT IS A SBA FOR TRANSFERS. PATIENT STATES HE MOSTLY USES WHEELCHAIR AROUND HOUSE. PATIENT WILL BE NPO AFTER MIDNIGHT FOR ANGIOGRAM TOMORROW. MEDS AND ICE CHIPS OKAY. WOUND TO RIGHT HEEL. PICTURES IN CHART. DRESSING CHANGED. PATIENT ATE DINNER WELL. PATIENT IS PLEASANT AND COOPERATIVE WITH CARE.
[2021-12-28 05:11] LABS: BASOPHILS ABSOLUTE AUTO 0.06 K/mm3 (0.00-0.23); BASOPHILS PERCENT AUTO 1 % (0-2); EOSINOPHILS ABSOLUTE AUTO 0.33 K/mm3 (0.00-0.68); EOSINOPHILS PERCENT AUTO 6 % (0-6); Hematocrit 31.7 % (37.0-53.0); Hemoglobin 9.7 g/dL (13.5-17.5); IMMATURE GRAN ABSOLUTE AUTO 0.02 K/mm3 (0.00-0.10); IMMATURE GRAN PERCENT AUTO 0 % (0-1); LYMPHOCYTES ABSOLUTE AUTO 1.24 K/mm3 (0.84-5.20); LYMPHOCYTES PERCENT AUTO 21 % (21-46); MONOCYTES ABSOLUTE AUTO 0.58 K/mm3 (0.16-1.47); MONOCYTES PERCENT AUTO 10 % (4-13); Mean Corpuscular HGB 25.8 pg (26.0-34.0); Mean Corpuscular HGB Conc 30.6 g/dL (31.5-36.5); Mean Corpuscular Volume 84 fL (80-100); Mean Platelet Volume 11.5 fL (9.1-12.4); NEUTROPHILS ABSOLUTE AUTO 3.74 K/mm3 (1.96-9.15); NEUTROPHILS PERCENT AUTO 63 % (41-73); Platelet Count 168 K/mm3 (150-400); RDW Coefficient Variation 18.2 % (11.7-14.2); RDW Standard Deviation 56.1 fL (35.1-46.3); Red Blood Cell Count 3.76 M/mm3 (4.30-5.90); White Blood Cell Count 5.97 K/mm3 (4.00-11.30)
--- NOTE | 2021-12-28 05:33 | NUR ---
SHIFT SUMMARY Patient resting confortably, no complaint of pain voices at this time. Patient is breathing at R/A Vital stable, He is still receiving the N/S at 200 ML/HR. He is now NPO for his procedure today. Patient is pleasant and cooperative with care. We will continue to monitor for any acute distress.
[2021-12-28 05:39] LABS: Alanine Aminotransfer (ALT/SGP 14 U/L (12-78); Albumin, Blood 2.5 g/dL (3.4-5.0); Albumin/Globulin Ratio 0.8 (0.8-1.8); Alk Phos 64 U/L (50-136); Anion Gap 5 mmol/L (6-16); Aspartate Aminotrans (AST/SGOT 13 U/L (12-37); Bilirubin, Total 0.4 mg/dL (0.1-1.0); Blood Urea Nitrogen 25 mg/dL (8-24); Bun/Creatinine Ratio 23.6 (12.0-20.0); CHOL/HDL RATIO 1.9; CO2, Blood 24 mmol/L (21-32); Calcium, Blood 8.6 mg/dL (8.5-10.1); Chloride, Blood 113 mmol/L (98-108); Cholesterol 100 mg/dL (50-200); Creatinine, Blood 1.06 mg/dL (0.60-1.20); Globulin, Blood 3.3 g/dL (2.2-4.0); Glomerular Filtration Rate >60 (60-); Glucose, Blood 100 mg/dL (70-99); HDL Cholesterol 52 mg/dL (>39); LDL/HDL RATIO 0.6; Low Density Lipoprotein Chol 29 mg/dL (0-110); Magnesium, Blood 1.6 mg/dL (1.6-2.4); Potassium, Blood 4.1 mmol/L (3.5-5.5); Sodium, Blood 142 mmol/L (136-145); Total Protein, Blood 5.8 g/dL (6.4-8.2); Triglycerides 94 mg/dL (30-160); Very Low Density Lipoprot Chol 18 mg/dL (6-32)
--- NOTE | 2021-12-28 10:08 | NUR ---
TRANSFER PATIENT TAKEN TO WINE STEWARD/STEWARDESS AT 1000. PATIENT TO TRANSFERS TO PCU 18 AFTER PROCEDURE.
--- NOTE | 2021-12-28 18:36 | NUR ---
Pt received from heart fackler this morning. Pt remains A&O x4. VSS. No c/o pain. AUO. Tolerating current diet. See cardio assessments for angio site documentation- no changes since receiving pt from heart fackler. Frequent rounds to ensure pt safety. Pt encouraged to turn q2hrs and pressure points offloaded to prevent pressure ulcers, pt verbalized understanding. Pt in no apparent distress at this time. Will continue to monitor until transfer of care to oncoming RN.
--- NOTE | 2021-12-29 13:05 | NUR ---
sent for patients advance directive
[2021-12-29] MEDS ORDERED: Isosorbide Mono30 MG PO (14:27)
[2021-12-29] MEDS ORDERED: XARELTO2.5 M1 PO (14:27)
--- NOTE | 2021-12-29 15:54 | NUR ---
PATIENT EDUCATED ON MEDICATIONS THAT ARE DISCONTINUED. WELL NEW MEDICATIONS.PATIENT VERBERLIZED UNDERSTANDING. PATIENT IS IN NO DISTRESS AT THIS TIME.IV REMOVED.PATIENT DRESSED AND READY FOR PICKUP.
--- NOTE | 2021-12-29 17:03 | NUR ---
pt advance [facility]. states he wants recussitation. But, if poor outcome stop treaments. Done isn 2012. Will review with pt and family. copy sent to medical records.
== END 2021-12-29 17:18 | disposition home or self-care (01) | DRG 281 ==
LOC: ER 09:39 → MEDS 13:41 → PCU 12-28 09:59
PROVIDERS: Emergency Medicine; Internal Medicine Cardiovascular Disease; ADMIT Internal Medicine
PROC: 4A023N7 Measurement of Cardiac Sampling and Pressure, Left Heart, Percutaneous Approach (ICD-10-PCS; principal; 2021-12-28)
PROC: B2111ZZ Fluoroscopy of Multiple Coronary Arteries using Low Osmolar Contrast (ICD-10-PCS; 2021-12-28)
PROC: B2181ZZ Fluoroscopy of Left Internal Mammary Bypass Graft using Low Osmolar Contrast (ICD-10-PCS; 2021-12-28)
PROC: B21F1ZZ Fluoroscopy of Other Bypass Graft using Low Osmolar Contrast (ICD-10-PCS; 2021-12-28)
DX: I25.729 Atherosclerosis of autologous artery coronary artery bypass graft(s) with unspecified angina pectoris (principal); I21.A1 Myocardial infarction type 2; I13.0 Hypertensive heart and chronic kidney disease with heart failure and stage 1 through stage 4 chronic kidney disease, or unspecified chronic kidney disease; I50.22 Chronic systolic (congestive) heart failure; N17.9 Acute kidney failure, unspecified; I42.9 Cardiomyopathy, unspecified; E78.5 Hyperlipidemia, unspecified; N18.30 Chronic kidney disease, stage 3 unspecified; M10.9 Gout, unspecified; J44.9 Chronic obstructive pulmonary disease, unspecified; N40.0 Benign prostatic hyperplasia without lower urinary tract symptoms; G47.33 Obstructive sleep apnea (adult) (pediatric); I73.9 Peripheral vascular disease, unspecified; Z53.29 Procedure and treatment not carried out because of patient's decision for other reasons; Z95.2 Presence of prosthetic heart valve; Z88.8 Allergy status to other drugs, medicaments and biological substances; I48.0 Paroxysmal atrial fibrillation; Z87.891 Personal history of nicotine dependence; Z79.82 Long term (current) use of aspirin; Z79.899 Other long term (current) drug therapy; K21.9 Gastro-esophageal reflux disease without esophagitis; N18.9 Chronic kidney disease, unspecified; Z95.5 Presence of coronary angioplasty implant and graft
CPT/HCPCS: 36415; 71045; 76937; 80053; 80061; 83036; 83735; 83880; 84443; 84484; 85025; 85610; 86850; 86900; 86901; 93005; 93010; 93308; 93321; 93455; 99152; 99153; 99285-25; A9270; C1760; C1769; C1894; J2250; J3010; J7030; J7040; Q9967

== ENCOUNTER 2022-03-02 11:06 | Inpatient (IN) | payer OTHER ==
[~2022-03-02] VITALS: Ht 160 cm; Wt 76.2 kg
[~2022-03-02 11:06] MED LIST changes: +Isosorbide Mono30 MG PO; +XARELTO2.5 M1 PO
[2022-03-02 11:50] LABS: BASOPHILS ABSOLUTE AUTO 0.03 K/mm3 (0.00-0.23); BASOPHILS PERCENT AUTO 0 % (0-2); EOSINOPHILS ABSOLUTE AUTO 0.07 K/mm3 (0.00-0.68); EOSINOPHILS PERCENT AUTO 1 % (0-6); Hematocrit 35.8 % (37.0-53.0); Hemoglobin 11.2 g/dL (13.5-17.5); IMMATURE GRAN ABSOLUTE AUTO 0.02 K/mm3 (0.00-0.10); IMMATURE GRAN PERCENT AUTO 0 % (0-1); LYMPHOCYTES ABSOLUTE AUTO 0.67 K/mm3 (0.84-5.20); LYMPHOCYTES PERCENT AUTO 10 % (21-46); MONOCYTES ABSOLUTE AUTO 0.44 K/mm3 (0.16-1.47); MONOCYTES PERCENT AUTO 7 % (4-13); Mean Corpuscular HGB 25.6 pg (26.0-34.0); Mean Corpuscular HGB Conc 31.3 g/dL (31.5-36.5); Mean Corpuscular Volume 82 fL (80-100); Mean Platelet Volume 11.2 fL (9.1-12.4); NEUTROPHILS ABSOLUTE AUTO 5.56 K/mm3 (1.96-9.15); NEUTROPHILS PERCENT AUTO 82 % (41-73); Platelet Count 153 K/mm3 (150-400); RDW Coefficient Variation 16.6 % (11.7-14.2); RDW Standard Deviation 49.6 fL (35.1-46.3); Red Blood Cell Count 4.37 M/mm3 (4.30-5.90); White Blood Cell Count 6.79 K/mm3 (4.00-11.30)
[2022-03-02 12:02] LABS: Albumin, Blood 2.7 g/dL (3.4-5.0); Albumin/Globulin Ratio 0.7 (0.8-1.8); Bilirubin, Total 0.5 mg/dL (0.1-1.0); Bun/Creatinine Ratio 26.3 (12.0-20.0); Calcium, Blood 8.6 mg/dL (8.5-10.1); Creatinine, Blood 1.18 mg/dL (0.60-1.20); Globulin, Blood 3.7 g/dL (2.2-4.0); Potassium, Blood 4.2 mmol/L (3.5-5.5); Total Protein, Blood 6.4 g/dL (6.4-8.2)
[2022-03-02 15:29] LABS: Anti-Xa UFH, PHA Monitoring <0.10 IU/mL; International Normalized Ratio 1.03; Prothrombin Time Results 10.8 Sec (9.7-11.5)
--- NOTE | 2022-03-02 22:59 | NUR ---
CARE ASSUMPTION NOTE THIS RN GOT REPORT FROM ED ON PATIENT - NOTED THE ELEVATED/UNMEASURABLE TROPONIN OF >125,000. PER ED MD NOTE, LOOKS LIKE JOLENE WAS MADE AWARE OF THIS CASE, AND SHE RECOMMENDED MEDICAL MANAGEMENT PATIENT HAD CATH IN DEC 2021 WITH NO INTERVENTIONS AND REC MED MANAGEMENT THEN WELL. THIS RN CALLED INTO CARDIOLOGY ANSWERING SERVICE. CARDIOLOGY TO SEE IN AM. BC OF THE UNMEASURABLE TROP, THIS RN DECIDED TO PAGE JOLENE TO UPDATE HER AND KEEP HER IN LOOP. SHE RECOMMENDED ME INFORM HOSPITALIST TEAM, AND CARDIOLOGY WILL SEE IN AM. CALLED MD KECIA TO INFORM OF SAME INFORMAITON AND SHE WAS MADE AWARE OF THE TROP AND SITUATION. PT ON HEP GTT AND PLANS ARE TO CONTINUE TO MEDICALLY MANAGE. PT C/O 2/10 CHEST PAIN, SIGNIFICANTLY BETTER THAN WHEN HE WAS INITIALLY ADMITTED, RATING CP 10/10 AT THAT TIME. THIS RN CALLED TO GET PRN PAIN MEDS FOR IN CASE THIS PATIENT DEVELOPS SEVERE CHEST PAIN AGAIN, KECIA GAVE ORDER FOR 2MG MORPHINE Q2 PRN CHESTPAIN. NONE GIVEN AT THIS TIME, BUT DOES HAVE NITRO PASTE AT THIS TIME. IT WAS NOTED THAT PT WAS SUPPOSED TO BE D/C'D ON AC, BUT PT STOPPED TAKING BC HE DEVELOPED HEMATURIA. ON THIS ADMISSION, PT IS PLACED ON HEP GTT KNOWING THAT HE MAY DEVELOP HEMATURIA AGAIN. PT HAD FIRST VOID DURING STAY ON PCU, AND IT WAS DARK THICK BLOODY URINE. KECIA MADE AWARE. ASKED IF SHE WANTED ME TO KEEP HEPARIN AND DO SERIAL H/H CHECKS, OR IF SHE WANTED ME TO STOP HEP GTT. SHE ORDERED CONTINUE HEP GTT AND H/H CHECKS, ORDERED TO NOTIFY IF HGB <8.0, AND IWLL BE GIVEN ORDERS TO TRANSFUSE. I MADE MD AWARE PATIENT IS A FULL CODE, AND SHE WAS UNDER IMPRESSION PT WAS DNR INTIALLY. CLOSE MONITORING AT THIS TIME. VSS. WILL CONTINUE TO MONITOR.
[2022-03-02 23:10] LABS: Hematocrit 33.2 % (37.0-53.0); Hemoglobin 10.3 g/dL (13.5-17.5)
[2022-03-03 04:19] LABS: BASOPHILS ABSOLUTE AUTO 0.03 K/mm3 (0.00-0.23); BASOPHILS PERCENT AUTO 1 % (0-2); EOSINOPHILS ABSOLUTE AUTO 0.24 K/mm3 (0.00-0.68); EOSINOPHILS PERCENT AUTO 4 % (0-6); Hematocrit 32.4 % (37.0-53.0); IMMATURE GRAN ABSOLUTE AUTO 0.01 K/mm3 (0.00-0.10); IMMATURE GRAN PERCENT AUTO 0 % (0-1); LYMPHOCYTES ABSOLUTE AUTO 1.17 K/mm3 (0.84-5.20); LYMPHOCYTES PERCENT AUTO 18 % (21-46); MONOCYTES ABSOLUTE AUTO 0.67 K/mm3 (0.16-1.47); MONOCYTES PERCENT AUTO 10 % (4-13); Mean Corpuscular HGB 25.5 pg (26.0-34.0); Mean Corpuscular HGB Conc 30.9 g/dL (31.5-36.5); Mean Corpuscular Volume 83 fL (80-100); Mean Platelet Volume 11.9 fL (9.1-12.4); NEUTROPHILS ABSOLUTE AUTO 4.36 K/mm3 (1.96-9.15); NEUTROPHILS PERCENT AUTO 67 % (41-73); Platelet Count 143 K/mm3 (150-400); RDW Coefficient Variation 17.1 % (11.7-14.2); RDW Standard Deviation 51.4 fL (35.1-46.3); Red Blood Cell Count 3.92 M/mm3 (4.30-5.90); White Blood Cell Count 6.48 K/mm3 (4.00-11.30)
[2022-03-03 04:41] LABS: Alanine Aminotransfer (ALT/SGP 50 U/L (12-78); Albumin, Blood 2.4 g/dL (3.4-5.0); Albumin/Globulin Ratio 0.8 (0.8-1.8); Alk Phos 77 U/L (50-136); Anion Gap 6 mmol/L (6-16); Aspartate Aminotrans (AST/SGOT 430 U/L (12-37); Bilirubin, Total 0.4 mg/dL (0.1-1.0); Blood Urea Nitrogen 32 mg/dL (8-24); Bun/Creatinine Ratio 29.9 (12.0-20.0); CO2, Blood 29 mmol/L (21-32); Calcium, Blood 8.5 mg/dL (8.5-10.1); Chloride, Blood 106 mmol/L (98-108); Creatinine, Blood 1.07 mg/dL (0.60-1.20); Glomerular Filtration Rate >60 (60-); Glucose, Blood 104 mg/dL (70-99); Magnesium, Blood 2.1 mg/dL (1.6-2.4); Sodium, Blood 141 mmol/L (136-145); Total Protein, Blood 5.4 g/dL (6.4-8.2)
[2022-03-03 12:12] LABS: Hematocrit 34.3 % (37.0-53.0); Hemoglobin 10.7 g/dL (13.5-17.5)
--- NOTE | 2022-03-03 13:41 | NUR ---
UPDATE PT TO SENIOR TALENT MANAGEMENT CONSULTANT AT 1340 VIA HOSPITAL BED AND ON RA. PT OCCAMPNIED BY 2 RN'S, PT CHART WITH RN'S. HEPARIN STOPPED AT THIS TIME, PHARMACY NOTIFIED.
[2022-03-03 15:23] LABS: CHOL/HDL RATIO 1.9; Cholesterol 100 mg/dL (50-200); HDL Cholesterol 52 mg/dL (>39); LDL/HDL RATIO 0.7; Low Density Lipoprotein Chol 35 mg/dL (0-110); Triglycerides 64 mg/dL (30-160); Very Low Density Lipoprot Chol 12 mg/dL (6-32)
--- NOTE | 2022-03-03 16:37 | NUR ---
CONTACTED PT CAREGIVER FOR AN UPDATE AFTER GETTING PERMISSION FROM PT TO DO SO. CAREGIVER MENTIONED THAT PT HAD "BLOODY URINE," THIS RN INFORMED CAREGIVER THAT DOCTORS ARE AWARE. CAREGIVER, LYUDMILA, THEN STATED THAT PT HAD TO "RESCHEDULE HIS SURGERY FOR HIS KIDNEY." THIS RN ASKED WHAT THE SURGERY WAS FRO, CAREGIVER STATED "TO CHANGE THE STENT IN HIS KIDNEYS." THIS RN ASKED PT IF HE RECALLED WHAT THE SURGERY WAS GOING TO BE FOR, PT STATED "IT IS TO REPLACE THE STENT FROM MY KIDNEY TO MY BLADDER. IT GETS REPLACED ONCE A YEAR."
--- NOTE | 2022-03-03 16:45 | NUR ---
UPDATE PT ARRIVED FROM GAS WELDING EQUIPMENT MECHANIC AT 1545 VIA WHEELCHAIR AND ON RA. ANGIOSEAL IN PLACE WITH NO HEMATOMA, SWELLING OR TENDERNESS NOTED. PT IN SUPINE POSITION WITH BLANKETS ACROSS THIGHS TO REMIND PT NOT TO LIFT LEGS OR BEND AT THE WAIST.
--- NOTE | 2022-03-03 17:43 | NUR ---
SHIFT SUMMARY PT A/O X4 AND COOPERATIVE OF CARE. VSS THROUGHOUT SHIFT WITH 02 SATS >92% ON RA. PT WENT TO LEAD ELECTRICAL CONTROLS ENGINEER FOR STENT PLACEMENT, RIGHT GROIN ACCESS. GROIN SITE SEALED WITH ANGIOSEAL, NO HEMATOMA, SWELLING OR TENDERNESS NOTED. NO REPORT OF CHEST PAIN/PRESSURE REPORTED THROUGHOUT SHIFT. NO REPORT OF SOB/DYSPNEA THROUGHOUT SHIFT. PT CAREGIVER UPDATED WITH PERISSION FROM PT, SEE PREVIOUS NOTES. PT CONTINUED TO HAVE HEMATURIA THROUGHOUT SHIFT, DR AWARE. PT NPO FOR MAJORITY OF SHIFT AWAITNG PROCEDURE, DINNER TRAY HELD FOR WHEN PT IS ABLE TO SIT UP POST PROCEDURE.
[2022-03-03 18:00] LABS: Hematocrit 33.7 % (37.0-53.0); Hemoglobin 10.4 g/dL (13.5-17.5)
--- NOTE | 2022-03-03 19:20 | NUR ---
ASSUMPTION OF CARE THIS STUDENT NURSE AND SERA TATE ASSUMED CARE OF PT. RECIEVED REPORT FROM SERA BARNES FAAS. WENT IN TO ASSESS RIGHT GROIN SITE; SMALL AMOUNT OF BLOOD LEAKING FROM ANGIOSEAL. NOT HEMATOMA, SWELLING, OR TENDERNESS NOTED. PLACED SANDBAG ON SITE TO HOLD PRESSURE. WILL CONTINUE TO MONITOR SITE AND PT.
--- NOTE | 2022-03-03 20:40 | NUR ---
UPON REASSESSMENT STILL HAS SLIGHT OOZING. REMOVED ANGIOSEAL AND REPLACED WITH LANIE DRESSING. HELD PRESSURE FOR 2 MINUTES AND REPLACED SAND BAG. VSS. NO CHANGES IN PT CONDITION. WILL CONTINUE TO MONITOR AND REASSESS.
--- NOTE | 2022-03-04 03:24 | NUR ---
REASSESSMENT AT 2200 AFTER CHANGING DRESSING, UPON REASSESSMENT, OOZING HAS STOPPED. HOB OF BED ELEVATED 15 DEGREES, CHECKED SITE AGAIN. NO OOZING NOTED. PT SEEMS TO BE TOLERATING WELL.
--- NOTE | 2022-03-04 05:08 | NUR ---
SHIFT SUMMARY PT ALERT AND ORIENTED. VSS THROUGHOUT SHIFT. SINUS RHYTHM WITH HEART RATE IN 60'S - 70'S. O2 SAT OCCASSIONALY DIP TO 88-89. PT HAS HX OF ROCHELLE. PT DOES NOT WANT CPAP. PT DENIES SOB, CHEST PAIN OR CHEST PRESSURE. PT STATES HE IS FEELING A LITTLE BETTER TODAY. PT HAD ANGIOGRAM 03/03 IN THE AFTERNOON. WHEN THIS STUDENT NURSE ASSUMED CARE, R GROIN SITE WAS ASSESSED. SOME OOZING WAS PRESENT; PLACED A SAND BAG ON SITE. UPON REASSESSMENT, STILL SOME OOZING PRESENT. ANGIOSEAL WAS TAKEN OFF AND REPLACED WITH LANIE DRESSING. THIS SEEMED TO HELP OOZING STOPPED. CONTINUED TO CHECK AND REASSESS PER PROTCOL. NO SWELLING, TENDERNESS, OR HEMATOMA NOTED. AFTER SITE CLEAR, RAISED HOB 15 DEGREES. PT TOLERATED WELL, GROIN SITE DID NOT OOZE; NO SWELLING, HEMATOMA OR TENDERNESS. CONTINUED TO RAISE HOB PER PROTOCOL AND REASSESS SITE. PT COMPLAINS OF HEEL HURTING AND "BOTHERING HIM". PT HAS WOUND VAC ON DUE TO PREVIOUS WOUND ON HEEL. PADDED BOOT PLACED TO HELP AND REPOSITIIONED FOOT. PT STATED THAT THIS HELPED ALLEVIATE SOME OF THE DISCOMFORT; STATED HE DID NOT WANT OR NEED MEDICAITON FOR THE PAIN. PT UP TO BEDSIDE COMMODE WITH 2 PERSON ASSIST AND FWW. GAIT A LITTLE UNSTEADY BUT PT TOLERATED WELL. EDUCATION PROVIDED ABOUT SITTING UP AT SIDE OF BED FIRST TO ALLOW FOR ADJUSTMENT AND SAFETY WHEN GETTING UP. URINE IMPROVING FIRST URINE OUTPUT STILL HAD SOME BLOOD BUT SHIFT WENT ON URINE CLEARED AND IS NOW YELLOW WITHOUT HEMATURIA. PT STILL USES URINAL REGULARLY. WILL CONTINUE TO MONITOR. SIDE RAILS UP, BED IN LOWEST POSITION, AND CALL LIGHT WITHIN REACH
[2022-03-04 05:10] LABS: BASOPHILS ABSOLUTE AUTO 0.03 K/mm3 (0.00-0.23); BASOPHILS PERCENT AUTO 1 % (0-2); EOSINOPHILS ABSOLUTE AUTO 0.18 K/mm3 (0.00-0.68); EOSINOPHILS PERCENT AUTO 3 % (0-6); Hematocrit 33.8 % (37.0-53.0); Hemoglobin 10.6 g/dL (13.5-17.5); IMMATURE GRAN ABSOLUTE AUTO 0.02 K/mm3 (0.00-0.10); IMMATURE GRAN PERCENT AUTO 0 % (0-1); LYMPHOCYTES ABSOLUTE AUTO 0.97 K/mm3 (0.84-5.20); LYMPHOCYTES PERCENT AUTO 16 % (21-46); MONOCYTES ABSOLUTE AUTO 0.55 K/mm3 (0.16-1.47); MONOCYTES PERCENT AUTO 9 % (4-13); Mean Corpuscular HGB Conc 31.4 g/dL (31.5-36.5); Mean Corpuscular Volume 83 fL (80-100); Mean Platelet Volume 11.3 fL (9.1-12.4); NEUTROPHILS ABSOLUTE AUTO 4.34 K/mm3 (1.96-9.15); NEUTROPHILS PERCENT AUTO 71 % (41-73); Platelet Count 135 K/mm3 (150-400); RDW Coefficient Variation 16.9 % (11.7-14.2); Red Blood Cell Count 4.07 M/mm3 (4.30-5.90); White Blood Cell Count 6.09 K/mm3 (4.00-11.30)
[2022-03-04 05:27] LABS: Alanine Aminotransfer (ALT/SGP 44 U/L (12-78); Albumin, Blood 2.4 g/dL (3.4-5.0); Albumin/Globulin Ratio 0.7 (0.8-1.8); Alk Phos 79 U/L (50-136); Anion Gap 5 mmol/L (6-16); Aspartate Aminotrans (AST/SGOT 230 U/L (12-37); Bilirubin, Direct 0.2 mg/dL (0.0-0.3); Bilirubin, Indirect 0.3 mg/dL (0.1-0.7); Bilirubin, Total 0.5 mg/dL (0.1-1.0); Blood Urea Nitrogen 25 mg/dL (8-24); Bun/Creatinine Ratio 27.2 (12.0-20.0); CO2, Blood 28 mmol/L (21-32); Calcium, Blood 8.6 mg/dL (8.5-10.1); Chloride, Blood 108 mmol/L (98-108); Creatinine, Blood 0.92 mg/dL (0.60-1.20); Globulin, Blood 3.3 g/dL (2.2-4.0); Glomerular Filtration Rate >60 (60-); Glucose, Blood 95 mg/dL (70-99); Phosphorus, Blood 3.1 mg/dL (2.5-4.9); Potassium, Blood 3.8 mmol/L (3.5-5.5); Sodium, Blood 141 mmol/L (136-145); Total Protein, Blood 5.7 g/dL (6.4-8.2)
[2022-03-04] MEDS ORDERED: ASPI81CH PO (11:26)
--- NOTE | 2022-03-04 14:34 | NUR ---
DISCHARGE UPDATE DISCHARGE PACKET GONE OVER WITH PT AT 1357. PT LEFT UNIT AT 1435 VIA WHEELCHAIR. PT ON RA FOR DISCHARGE. PT ABLE TO TRANSFER FROM BED TO WHEELCHAIR USING A WALKER, TOLERATED WELL. PT BELONGINGS IN BAGS AND WITH PT FOR DISCHARGE. PT STENT CARD IN DISCHARGE PACKET AND WITH PT FOR DISCHARGE.
== END 2022-03-04 14:38 | disposition home or self-care (01) | DRG 247 ==
LOC: ER 11:06 → PCU 15:04 → ERHOLD 15:04 → PCU 20:58
PROVIDERS: Emergency Medicine; Family Medicine; Internal Medicine; Nurse Practitioner Acute Care; ADMIT Hospitalist
PROC: 027034Z Dilation of Coronary Artery, One Artery with Drug-eluting Intraluminal Device, Percutaneous Approach (ICD-10-PCS; principal; 2022-03-03)
PROC: 4A023N7 Measurement of Cardiac Sampling and Pressure, Left Heart, Percutaneous Approach (ICD-10-PCS; 2022-03-03)
PROC: B2111ZZ Fluoroscopy of Multiple Coronary Arteries using Low Osmolar Contrast (ICD-10-PCS; 2022-03-03)
PROC: B2181ZZ Fluoroscopy of Left Internal Mammary Bypass Graft using Low Osmolar Contrast (ICD-10-PCS; 2022-03-03)
DX: I21.4 Non-ST elevation (NSTEMI) myocardial infarction (principal); I50.22 Chronic systolic (congestive) heart failure; I13.0 Hypertensive heart and chronic kidney disease with heart failure and stage 1 through stage 4 chronic kidney disease, or unspecified chronic kidney disease; I48.0 Paroxysmal atrial fibrillation; E78.5 Hyperlipidemia, unspecified; N18.30 Chronic kidney disease, stage 3 unspecified; M10.9 Gout, unspecified; R31.9 Hematuria, unspecified; G62.9 Polyneuropathy, unspecified; D69.6 Thrombocytopenia, unspecified; D63.1 Anemia in chronic kidney disease; I44.7 Left bundle-branch block, unspecified; N40.0 Benign prostatic hyperplasia without lower urinary tract symptoms; K21.9 Gastro-esophageal reflux disease without esophagitis; G47.33 Obstructive sleep apnea (adult) (pediatric); Z85.51 Personal history of malignant neoplasm of bladder; Z86.73 Personal history of transient ischemic attack (TIA), and cerebral infarction without residual deficits; Z87.19 Personal history of other diseases of the digestive system; Z98.890 Other specified postprocedural states; Z95.2 Presence of prosthetic heart valve; Z95.1 Presence of aortocoronary bypass graft; Z87.891 Personal history of nicotine dependence; Z88.8 Allergy status to other drugs, medicaments and biological substances; Z79.02 Long term (current) use of antithrombotics/antiplatelets; Z79.899 Other long term (current) drug therapy
CPT/HCPCS: 36415; 71045; 80053; 80061; 82248; 83735; 83880; 84100; 84145; 84484; 85014; 85018; 85025; 85347; 85520; 85610; 93005; 93010; 93306; 93455; 94760; 96365; 96366; 96375; 99152; 99153; 99285-25; A9270; C1725; C1760; C1769; C1874; C1887; C1894; C9113; C9600; J1644; J2250; J2270; J3010; J7030; J7040; Q9967

== ENCOUNTER 2022-11-25 15:10 | Inpatient (IN) | payer OTHER ==
[~2022-11-25] VITALS: Ht 177.8 cm; Wt 96.6 kg
[~2022-11-25 15:10] MED LIST changes: +ASPI81CH PO
[2022-11-25 15:32] LABS: BASOPHILS ABSOLUTE AUTO 0.05 K/mm3 (0.00-0.23); BASOPHILS PERCENT AUTO 1 % (0-2); EOSINOPHILS ABSOLUTE AUTO 0.17 K/mm3 (0.00-0.68); EOSINOPHILS PERCENT AUTO 3 % (0-6); Hematocrit 35.1 % (37.0-53.0); Hemoglobin 10.7 g/dL (13.5-17.5); IMMATURE GRAN ABSOLUTE AUTO 0.02 K/mm3 (0.00-0.10); IMMATURE GRAN PERCENT AUTO 0 % (0-1); LYMPHOCYTES ABSOLUTE AUTO 1.42 K/mm3 (0.84-5.20); LYMPHOCYTES PERCENT AUTO 26 % (21-46); MONOCYTES ABSOLUTE AUTO 0.65 K/mm3 (0.16-1.47); MONOCYTES PERCENT AUTO 12 % (4-13); Mean Corpuscular HGB 23.4 pg (26.0-34.0); Mean Corpuscular HGB Conc 30.5 g/dL (31.5-36.5); Mean Corpuscular Volume 77 fL (80-100); Mean Platelet Volume 11.7 fL (9.1-12.4); NEUTROPHILS ABSOLUTE AUTO 3.15 K/mm3 (1.96-9.15); NEUTROPHILS PERCENT AUTO 58 % (41-73); Platelet Count 235 K/mm3 (150-400); RDW Standard Deviation 52.6 fL (35.1-46.3); Red Blood Cell Count 4.58 M/mm3 (4.30-5.90); White Blood Cell Count 5.46 K/mm3 (4.00-11.30)
[2022-11-25] MEDS ORDERED: Neurontin800 MG PO (15:46)
[2022-11-25] MEDS ORDERED: LISI20 PO (15:46)
[2022-11-25] MEDS ORDERED: TRIDERM28.4 GM TOP (15:47)
[2022-11-25] MEDS ORDERED: TAMS.4ER PO (15:47)
[2022-11-25] MEDS ORDERED: SENNA LAXATIVE8.6 MG PO (15:47)
[2022-11-25] MEDS ORDERED: MIRALAX17 GM PO (15:48)
[2022-11-25] MEDS ORDERED: PANT20 PO (15:48)
[2022-11-25 16:18] LABS: Albumin/Globulin Ratio 0.7 (0.8-1.8); Bilirubin, Total 0.4 mg/dL (0.1-1.0); Bun/Creatinine Ratio 19.7 (12.0-20.0); Creatinine, Blood 1.22 mg/dL (0.60-1.20); Globulin, Blood 4.2 g/dL (2.2-4.0); Potassium, Blood 4.1 mmol/L (3.5-5.5); Total Protein, Blood 7.2 g/dL (6.4-8.2)
--- NOTE | 2022-11-25 18:46 | NUR ---
ADMISSION: Pt arrived to ICU at 1812 from ED. He is A/O x 4 and moves all extremities. Pt denies chest pain or shortness of breath. No skin breakdown on backside or coccyx. [facility] changed today; dressings are changed weekly. He voids independantly using urinal. Tolerating dinner well. Bilateral PIVs present.
--- NOTE | 2022-11-25 21:38 | NUR ---
ASSUMED CARE AT 1900 PT LAYING IN BED WATCHING TV AT SHIFT CHANGE. HE IS A/O X4 AND ABLE TO MAKE HIS NEEDS KNOW. WHILE AWAKE, SPO2 >95% ON RA; WHILE SLEEPING PLACED ON 2L TO KEEP SPO2 >95%. AFEBRILE. HR IN LOW 40'S, THIRD DEGREE HB NOTED; SBP 170-200'S; NO C/O DIZZINESS, CHEST PAIN, OR DYSPNEA. TOLERATING PO INTAKE WELL AND ATE MOST OF DINNER PLATE. INDEPENDENTLY USES URINAL. BLE BANDAGES LEFT IN PLACE D/T BEING PLACED AT THE IN WOUND CLINIC EARLIER TODAY. SALINE LOCKED. SEE SHIFT ASSESSMENT FOR FULL ASSESSMENT. DR NEWTON IN TO SEE PATIENT. PLAN MADE FOR PT TO HAVE A PACEMAKER PLACED TOMORROW. HE IS TO BE NPO AT MIDNIGHT. ZOLL PATCHES ON PATIENT. ZOLL AT BEDSIDE.
[2022-11-26 04:00] LABS: BASOPHILS ABSOLUTE AUTO 0.05 K/mm3 (0.00-0.23); BASOPHILS PERCENT AUTO 1 % (0-2); EOSINOPHILS ABSOLUTE AUTO 0.21 K/mm3 (0.00-0.68); EOSINOPHILS PERCENT AUTO 4 % (0-6); Hematocrit 32.8 % (37.0-53.0); Hemoglobin 10.2 g/dL (13.5-17.5); IMMATURE GRAN ABSOLUTE AUTO 0.02 K/mm3 (0.00-0.10); IMMATURE GRAN PERCENT AUTO 0 % (0-1); LYMPHOCYTES ABSOLUTE AUTO 1.02 K/mm3 (0.84-5.20); LYMPHOCYTES PERCENT AUTO 19 % (21-46); MONOCYTES ABSOLUTE AUTO 0.67 K/mm3 (0.16-1.47); MONOCYTES PERCENT AUTO 12 % (4-13); Mean Corpuscular HGB 23.7 pg (26.0-34.0); Mean Corpuscular HGB Conc 31.1 g/dL (31.5-36.5); Mean Corpuscular Volume 76 fL (80-100); NEUTROPHILS ABSOLUTE AUTO 3.54 K/mm3 (1.96-9.15); NEUTROPHILS PERCENT AUTO 64 % (41-73); Platelet Count 202 K/mm3 (150-400); RDW Coefficient Variation 18.7 % (11.7-14.2); RDW Standard Deviation 50.9 fL (35.1-46.3); White Blood Cell Count 5.51 K/mm3 (4.00-11.30)
[2022-11-26 04:19] LABS: Albumin, Blood 2.5 g/dL (3.4-5.0); Albumin/Globulin Ratio 0.6 (0.8-1.8); Bilirubin, Total 0.4 mg/dL (0.1-1.0); Bun/Creatinine Ratio 21.4 (12.0-20.0); Calcium, Blood 8.6 mg/dL (8.5-10.1); Creatinine, Blood 1.17 mg/dL (0.60-1.20); Globulin, Blood 3.9 g/dL (2.2-4.0); Potassium, Blood 4.1 mmol/L (3.5-5.5); Total Protein, Blood 6.4 g/dL (6.4-8.2)
--- NOTE | 2022-11-26 06:38 | NUR ---
END OF SHIFT SUMMARY NO ACUTE EVENTS OVERNIGHT; HE WAS ABLE TO SLEEP MOST OF THE SHIFT. CONT TO BE A/O X4 AND ABLE TO MAKE HIS NEEDS KNOWN. PLACED ON 2L NC WHILE SLEEPING DUE TO APNEA AND DESATURATING, NOW SPO2 >95%. THIRD DEGREE HB CONT WITH HR 39-45; SBP 150-200; NO C/O CHEST PAIN, DYSPNEA, OR DIZZINESS. NPO SINCE 0000. CONT TO USE URINAL INDEPENDENTLY. BLE WOUND UNNA BOOTS UNWRAPPED AND PICTURES TAKEN; RED AREAS NOTED T/O BLE AND PT SAYS THAT THOSE WOUNDS USE TO BE OPEN AND THAT HE IS HEALING VERY WELL; ORDERS IN TO REPLACE UNNA BOOTS, AWAITING FOR SUPPLIES TO ARRIVE FROM PHARMACY. NS INFUSING AT 75ML/HR. WILL REPORT TO AM RN WHEN AVAILABLE.
--- NOTE | 2022-11-26 07:21 | NUR ---
ASSUMED CARE OF PT AT 0715 BEDSIDE REPORT RECEIVED FROM SERA GUIDRY. PT APPEARS TO BE RESTING COMFORTABLY. UNNA BOOTS CURRENTLY OFF, ORDER FOR PRODUCT TO REPLACE RECIEVED FROM MD. 3RD DEGREE HEART BLOCK CONTINUES, BP STABLE. PLAN IS FOR PACER TODAY, CONSENT COMPLETED BY COLORER HIDES AND SKINS UPON ADMIT AND IS IN CHART. ECHO ORDERED TO BE COMPLETED BEFORE PACER. ALL OTHER ASSESSMENT WNL. RN TO CONTINUE TO MONITOR.
--- NOTE | 2022-11-26 07:41 | NUR ---
PITCH WORKER TO BEDSIDE
--- NOTE | 2022-11-26 10:15 | NUR ---
PT TO OR FOR PACEMAKER PLACEMENT.
--- NOTE | 2022-11-26 13:40 | NUR ---
Assumed care from INTERIOR WIRER and patient transferred to PCU 5. Left chest pacer site C/D/I. Patient alert and able to answer questions and is able to communicate his needs. Received report from Fatimah ZAMORA post pacer placement.
--- NOTE | 2022-11-26 13:54 | NUR ---
PT TO PCU AFTER PACEMAKER PLACEMENT REPORT GIVEN TO PCU NURSE
--- NOTE | 2022-11-26 15:30 | NUR ---
patient has been sleeping and awakens easily to verbal stimuli. Left upper chest pacer site C/D/I and no visual swelling. He remains alert and oriented and is able to communicate his needs. He denies any needs. He remains on RA and sats >90%
--- NOTE | 2022-11-26 17:45 | NUR ---
Family visiting and patient awake sitting up in bed. Cut up dinner for him and gave him his teeth and he states food was still tuff and he requested pudding for now. Systolic 180's and will pass on to call hospitalist for prn. Pacer site WNL's and is paced about 90% of the time.
--- NOTE | 2022-11-26 21:02 | NUR ---
DR FRANK CALLED FOR HTN, NEW PRN ORDER RECIEVED
[2022-11-27 04:45] LABS: Hematocrit 35.6 % (37.0-53.0); Mean Corpuscular HGB 23.6 pg (26.0-34.0); Mean Corpuscular HGB Conc 30.9 g/dL (31.5-36.5); Mean Corpuscular Volume 76 fL (80-100); Mean Platelet Volume 10.7 fL (9.1-12.4); Platelet Count 187 K/mm3 (150-400); RDW Standard Deviation 51.8 fL (35.1-46.3); Red Blood Cell Count 4.66 M/mm3 (4.30-5.90); White Blood Cell Count 5.18 K/mm3 (4.00-11.30)
[2022-11-27 05:02] LABS: Albumin, Blood 2.5 g/dL (3.4-5.0); Anion Gap 6 mmol/L (6-16); Blood Urea Nitrogen 20 mg/dL (8-24); Bun/Creatinine Ratio 18.9 (12.0-20.0); CO2, Blood 23 mmol/L (21-32); Chloride, Blood 111 mmol/L (98-108); Creatinine, Blood 1.06 mg/dL (0.60-1.20); Glomerular Filtration Rate 68 (60-); Glucose, Blood 92 mg/dL (70-99); Phosphorus, Blood 2.7 mg/dL (2.5-4.9); Potassium, Blood 3.8 mmol/L (3.5-5.5); Sodium, Blood 140 mmol/L (136-145)
--- NOTE | 2022-11-27 05:25 | NUR ---
HTN TREATED WITH ONE PRN DOSE OF HYDRALAZINE, PT UP TO BSC FOR BM X2 ASSIST, PT NEEDED MULTIPLE REMINDERS NOT TO USE LEFT ARM, PT RESTED WELL WITHOUT ISSUE, TYLENOL X 1 DOSE GIVEN FOR PM SITE DISCOMFORT
--- NOTE | 2022-11-27 08:00 | NUR ---
Patient resting and awakens when entering room or verbal stimuli. He is on RA and sats >90%. Left chest pacer site C/D/I and no swelling. He is paced about 95% of the time. He is alert and oriented and is able to communicate his needs. LE's bilaterally look WNL and [facility] He has 290ga IV to RAC and is SL's post flush.
--- NOTE | 2022-11-27 10:27 | NUR ---
Dr Prabhakar and Dr Hayes have seen patient and will be discharging patient home. I am trying to contact family to assure he has resource before discharge. PT in room evauating patient. He remains on RA and sats >90%. He tolerated am meds PO without difficulty a few at a time with water. Pacer site WNL's and is paced.
--- NOTE | 2022-11-27 11:55 | NUR ---
Still trying to get a hold of family for patient discharge, PT done with eval and notified Dr Prabhakar. Dr Pendleton by and assessed pacer site and chnaged dressing.
[2022-11-27] MEDS ORDERED: CEPH500 PO (12:35)
--- NOTE | 2022-11-27 14:09 | NUR ---
Patient sister came in and has not been able to contact family, she is already caregiver off property and try to get family that live on property to return calls. Pacer site WNL's. He received bath and linen change. he remains paced rhythm.
--- NOTE | 2022-11-27 17:04 | NUR ---
MADE CONTACT WITH PTS NEIGHBOR [place]. PER PT AND NEIGHBOR THEY ARE UNABLE TO PICKUP PATIENT DUE TO NO TRANSPORTATION, PTS TRUCK IS NOT SAFE TO DRIVE AND PT NEED[place] UNABLE TO FIND A SAFE RIDE HOME FOR PT AND W/C AT THIS TIME.
--- NOTE | 2022-11-28 05:45 | NUR ---
RESTED WELL OVERNIGHT, DESATTING WITH PERIODS OF APNEA, 2LPM NC PLACED WHILE SLEEPING PT DOES NOT HAVE ROCHELLE EQUIPMENT FROM HOME, OTHERWISE B/P IMPROVING WITH MED CHANGES, TYLENOL X'S 1 FOR GENERALIZED DISCOMFORT
--- NOTE | 2022-11-28 15:23 | NUR ---
DISCHARGE: PT HAS BEEN CLEARED FOR DISCHARGE HOME AFTER REFUSING SNF PLACEMENT RECOMMENDATIONS. DC PAPERWORK AND INSTRUCTIONS THOROUGHLY REVIEWED WITH PT. PT V/U, ALL QUESTIONS ANSWERED. IV ACCESS DC'd WNL. PT ASSISTED W/DRESSING. L ARM CONTINUES IN SLING. PT ASSISTED TO HIS OWN W/C THAT IS PRESENT IN ROOM AND ESCORTED FROM UNIT W/OUT INCIDENT.
== END 2022-11-28 14:41 | disposition home or self-care (01) | DRG 243 ==
LOC: ER 15:10 → ICUE 17:31 → PCU 17:31 → ICUW 17:31 → PCU 17:31 → ICUE 18:03 → PCU 11-26 13:06
PROVIDERS: Emergency Medicine; Internal Medicine; ADMIT Internal Medicine
PROC: 0JH606Z Insertion of Pacemaker, Dual Chamber into Chest Subcutaneous Tissue and Fascia, Open Approach (ICD-10-PCS; principal; 2022-11-26)
PROC: 02H63JZ Insertion of Pacemaker Lead into Right Atrium, Percutaneous Approach (ICD-10-PCS; 2022-11-26)
PROC: 02HK3JZ Insertion of Pacemaker Lead into Right Ventricle, Percutaneous Approach (ICD-10-PCS; 2022-11-26)
DX: I44.2 Atrioventricular block, complete (principal); I13.0 Hypertensive heart and chronic kidney disease with heart failure and stage 1 through stage 4 chronic kidney disease, or unspecified chronic kidney disease; I50.22 Chronic systolic (congestive) heart failure; L97.219 Non-pressure chronic ulcer of right calf with unspecified severity; Z28.21 Immunization not carried out because of patient refusal; I73.9 Peripheral vascular disease, unspecified; I27.20 Pulmonary hypertension, unspecified; I48.0 Paroxysmal atrial fibrillation; N40.0 Benign prostatic hyperplasia without lower urinary tract symptoms; I25.10 Atherosclerotic heart disease of native coronary artery without angina pectoris; M10.9 Gout, unspecified; K21.9 Gastro-esophageal reflux disease without esophagitis; G62.9 Polyneuropathy, unspecified; N18.30 Chronic kidney disease, stage 3 unspecified; E78.00 Pure hypercholesterolemia, unspecified; E66.9 Obesity, unspecified; G47.33 Obstructive sleep apnea (adult) (pediatric); Z68.24 Body mass index [BMI] 24.0-24.9, adult; Z86.73 Personal history of transient ischemic attack (TIA), and cerebral infarction without residual deficits; Z85.51 Personal history of malignant neoplasm of bladder; Z87.891 Personal history of nicotine dependence; Z79.82 Long term (current) use of aspirin; Z95.1 Presence of aortocoronary bypass graft; Z87.19 Personal history of other diseases of the digestive system; Z98.890 Other specified postprocedural states; Z95.2 Presence of prosthetic heart valve; Z99.89 Dependence on other enabling machines and devices; Z88.8 Allergy status to other drugs, medicaments and biological substances; Z79.899 Other long term (current) drug therapy
CPT/HCPCS: 33208; 36415; 71045; 76937; 80053; 80069; 85025; 85027; 93005; 93010; 93306; 94760; 97110; 97162; 97166; 97530; 99152; 99153; 99285-25; A9270; C1781; C1785; C1894; C1898; C9113; J0360; J0690; J1644; J1650; J2250; J3010; J7030; J7040

== ENCOUNTER → 2023-01-24 | Outpatient (CLI) | payer OTHER ==
[~2023-01-24] MED LIST changes: +CEPH500 PO; +MIRALAX17 GM PO; +Neurontin800 MG PO; +SENNA LAXATIVE8.6 MG PO; +TRIDERM28.4 GM TOP
[2023-01-24 18:04] LABS: Source, Urine Clean Catch
[2023-01-24 19:07] LABS: Bilirubin, Urine Neg (Neg); Blood, Urine 2+ (Neg); Color, Urine Yellow (P-Yellow); Glucose Qualitative, Urine Neg (Neg); Ketones, Urine Neg (Neg); Leukocyte Esterase, Urine 2+ (Neg); Nitrite, Urine Neg (Neg); Protein, Urine 2+ (Neg); Urobilinogen, Urine NORM (Normal)
[2023-01-24 19:14] LABS: Appearance, Urine Hazy (Clear)
[2023-01-24 19:15] LABS: Bacteria Many /hpf; Red Blood Cells, Urine 0-2 /hpf (0-2); Squamous Epithelial Cells Rare /hpf (Few)
== END | disposition home or self-care (01) ==
LOC: LAB SHORT 11:20
PROVIDERS: Nurse Practitioner Family
DX: R30.0 Dysuria (principal)
CPT/HCPCS: 81001

== ENCOUNTER → 2023-02-28 | Outpatient (CLI) | payer OTHER ==
[2023-02-28 18:06] LABS: Source, Urine Clean Catch
[2023-02-28 19:39] LABS: Appearance, Urine Hazy (Clear); Bilirubin, Urine Neg (Neg); Blood, Urine 2+ (Neg); Color, Urine Yellow (P-Yellow); Glucose Qualitative, Urine Neg (Neg); Ketones, Urine Neg (Neg); Leukocyte Esterase, Urine 3+ (Neg); Nitrite, Urine Neg (Neg); Protein, Urine 2+ (Neg); Specific Gravity, Urine 1.015 (1.003-1.022); Urobilinogen, Urine NORM (Normal)
[2023-02-28 19:48] LABS: Bacteria Mod /hpf; Squamous Epithelial Cells Not Seen /hpf (Few); White Blood Cells, Urine TNTC /hpf (0-5)
== END | disposition home or self-care (01) ==
LOC: LAB SHORT 18:04
PROVIDERS: Nurse Practitioner Family
DX: N39.0 Urinary tract infection, site not specified (principal); R30.0 Dysuria
CPT/HCPCS: 81001

== ENCOUNTER 2023-11-29 13:10 | Inpatient (IN) | payer OTHER ==
[~2023-11-29] VITALS: Ht 177.8 cm; Wt 85.0 kg
[2023-11-29 13:56] LABS: BASOPHILS ABSOLUTE AUTO 0.04 K/mm3 (0.00-0.23); BASOPHILS PERCENT AUTO 1 % (0-2); EOSINOPHILS ABSOLUTE AUTO 0.11 K/mm3 (0.00-0.68); EOSINOPHILS PERCENT AUTO 2 % (0-6); Hematocrit 46.6 % (37.0-53.0); Hemoglobin 14.8 g/dL (13.5-17.5); IMMATURE GRAN ABSOLUTE AUTO 0.02 K/mm3 (0.00-0.10); IMMATURE GRAN PERCENT AUTO 0 % (0-1); LYMPHOCYTES ABSOLUTE AUTO 1.16 K/mm3 (0.84-5.20); LYMPHOCYTES PERCENT AUTO 19 % (21-46); MONOCYTES ABSOLUTE AUTO 0.39 K/mm3 (0.16-1.47); MONOCYTES PERCENT AUTO 7 % (4-13); Mean Corpuscular HGB 27.7 pg (26.0-34.0); Mean Corpuscular HGB Conc 31.8 g/dL (31.5-36.5); Mean Corpuscular Volume 87 fL (80-100); Mean Platelet Volume 11.3 fL (9.1-12.4); NEUTROPHILS ABSOLUTE AUTO 4.32 K/mm3 (1.96-9.15); NEUTROPHILS PERCENT AUTO 72 % (41-73); NRBC ABSOLUTE 0.02 K/mm3 (0.00-0.02); NRBC Auto 0.3 /100 WBC (0.0-0.2); Platelet Count 147 K/mm3 (150-400); RDW Coefficient Variation 16.8 % (11.7-14.2); RDW Standard Deviation 53.1 fL (35.1-46.3); Red Blood Cell Count 5.34 M/mm3 (4.30-5.90); White Blood Cell Count 6.04 K/mm3 (4.00-11.30)
[2023-11-29 14:17] LABS: Albumin, Blood 3.5 g/dL (3.4-5.0); Albumin/Globulin Ratio 0.8 (0.8-1.8); Bilirubin, Total 0.5 mg/dL (0.1-1.0); Bun/Creatinine Ratio 28.3 (12.0-20.0); Calcium, Blood 9.3 mg/dL (8.5-10.1); Creatinine, Blood 1.52 mg/dL (0.60-1.20); Globulin, Blood 4.4 g/dL (2.2-4.0); Potassium, Blood 5.3 mmol/L (3.5-5.5); Total Protein, Blood 7.9 g/dL (6.4-8.2)
[2023-11-29 20:39] LABS: Anti-Xa UFH, PHA Monitoring <0.10 IU/mL; International Normalized Ratio 1.02; Prothrombin Time Results 10.7 Sec (9.7-11.5)
[2023-11-29 21:13] VITALS: BP 158/104
[2023-11-29] MEDS ORDERED: FAMO20 PO (22:37)
[2023-11-29] MEDS ORDERED: FERROUS GLUCON324 M7 PO (22:38)
[2023-11-29] MEDS ORDERED: CENTRUM SILVER1 EAC2 PO (22:41)
[2023-11-30 00:22] VITALS: BP 114/83
[2023-11-30 03:14] LABS: Hematocrit 45.3 % (37.0-53.0); Hemoglobin 14.3 g/dL (13.5-17.5); Mean Corpuscular HGB 27.6 pg (26.0-34.0); Mean Corpuscular HGB Conc 31.6 g/dL (31.5-36.5); Mean Corpuscular Volume 88 fL (80-100); Mean Platelet Volume 10.9 fL (9.1-12.4); Platelet Count 135 K/mm3 (150-400); RDW Coefficient Variation 16.6 % (11.7-14.2); RDW Standard Deviation 53.1 fL (35.1-46.3); Red Blood Cell Count 5.18 M/mm3 (4.30-5.90); White Blood Cell Count 6.39 K/mm3 (4.00-11.30)
[2023-11-30 03:54] LABS: Bun/Creatinine Ratio 28.9 (12.0-20.0); Creatinine, Blood 1.42 mg/dL (0.60-1.20)
[2023-11-30 04:09] VITALS: BP 149/94
--- NOTE | 2023-11-30 05:35 | NUR ---
SHIFT SUMMARY PATIENT ALERT AND ORIENTED X4. ABLE TO STAND WITH MINIMAL ASSIST, USES AN ELECTRIC WHEELCHAIR AT BASELINE. PATIENT DENIES HAVING ANY CHEST PAIN OR SHORTNESS OF BREATH. TROPONIN PEAKED AT 458. HEPARIN DRIP INFUSING. PATIENT IS CURRENTLY NPO PENDING CARDIOLOGY CONSULT. PATIENT ON ROOM AIR WHILE AWAKE, CPAP WHILE SLEEPING. VITAL SIGNS STABLE. NO ACUTE ISSUES NOTED OVERNIGHT. WILL CONTINUE TO MONITOR. CALL LIGHT WITHIN REACH.
[2023-11-30 07:21] VITALS: BP 141/82
[2023-11-30 10:35] LABS: CHOL/HDL RATIO 1.9; Cholesterol 131 mg/dL (50-200); HDL Cholesterol 68 mg/dL (>39); LDL/HDL RATIO 0.8; Low Density Lipoprotein Chol 54 mg/dL (0-110); Triglycerides 47 mg/dL (30-160); Very Low Density Lipoprot Chol 9 mg/dL (6-32)
[2023-11-30 11:11] VITALS: BP 101/63
[2023-11-30] MEDS ORDERED: ASPI81CH PO (11:29)
[2023-11-30] MEDS ORDERED: METO50ER PO (11:29)
--- NOTE | 2023-11-30 11:58 | NUR ---
POLST form reviewed Called to pt's room by Primary RN and Dr. Moralez to review code status and medical interventions. Mr. Alex Keen whom likes to be addressed as "J Carlos" is sitting up in bed. J Carlos is A/O x4. He makes his own medical decisions. J Carlos is a patient at the [facility] and recently established care with [facility]. Thorough education on CPR vs DNR and each level of medical interventions listed on the POLST form. Final outcome of conversation J Carlos wants to be DNR with limited medical interventions. POLST to be signed by provider. Primary RN to call provider and fax completed POLST to [facility], [facility] and send to medical records.
--- NOTE | 2023-11-30 13:45 | NUR ---
DISCHARGE UPDATE DISCHARGE PACKET GONE OVER WITH PT AT 1335. PT DISCHARGED AT 1345 VIA HIS PERSONAL MOTORIZED WHEELCHAIR. PT INFORMED THAT MEDS HAV E BEEN FAXED TO [facility]. PT PERSONAL BELONGINGS IN BAG AND WITH PT AT TIME TO DISCHARGE. DISCHARGE PACKET PUT IN BAG ALONG WITH PT CELL PHONE AND BAG HUNG ON BACK OF PT WHEELCHAIR PER PT REQUEST. PT ABLE TO TRANSFER SELF FROM BED TO WHEELCHAIR ON HIS OWN, TOLERATED WELL.
--- NOTE | 2023-11-30 14:21 | NUR ---
SHIFT SUMMARY PT A&OX4. SP02>90% ON RA. TELEMETRY SHOWED PACED, HR 60'S. VSS. CARDIOLOGY CONSULTED TODAY, PT OPTED FOR MEDICAL MANAGEMENT. HEP GTT TURNED OFF. CONDOM CATH REMOVED. IV REMOVED. PT HELPED DRESS. [facility] APPROX 1330. PT TAKEN BY [facility] TO DISCHARGE HOME.
== END 2023-11-30 13:50 | disposition home or self-care (01) | DRG 280 ==
LOC: ER 13:10 → PCU 19:24
PROVIDERS: Emergency Medicine; Internal Medicine Cardiovascular Disease; Nurse Practitioner Acute Care; ADMIT Internal Medicine
PROC: 5A09357 Assistance with Respiratory Ventilation, Less than 24 Consecutive Hours, Continuous Positive Airway Pressure (ICD-10-PCS; principal; 2023-11-29)
DX: I21.4 Non-ST elevation (NSTEMI) myocardial infarction (principal); I50.43 Acute on chronic combined systolic (congestive) and diastolic (congestive) heart failure; I13.0 Hypertensive heart and chronic kidney disease with heart failure and stage 1 through stage 4 chronic kidney disease, or unspecified chronic kidney disease; I44.2 Atrioventricular block, complete; I47.10 Supraventricular tachycardia, unspecified; N17.9 Acute kidney failure, unspecified; I25.10 Atherosclerotic heart disease of native coronary artery without angina pectoris; M10.9 Gout, unspecified; I12.9 Hypertensive chronic kidney disease with stage 1 through stage 4 chronic kidney disease, or unspecified chronic kidney disease; N18.30 Chronic kidney disease, stage 3 unspecified; I73.9 Peripheral vascular disease, unspecified; K21.9 Gastro-esophageal reflux disease without esophagitis; G62.9 Polyneuropathy, unspecified; I48.0 Paroxysmal atrial fibrillation; N40.0 Benign prostatic hyperplasia without lower urinary tract symptoms; Z66 Do not resuscitate; E78.00 Pure hypercholesterolemia, unspecified; E66.3 Overweight; G47.33 Obstructive sleep apnea (adult) (pediatric); I71.40 Abdominal aortic aneurysm, without rupture, unspecified; Z85.51 Personal history of malignant neoplasm of bladder; Z95.1 Presence of aortocoronary bypass graft; Z95.5 Presence of coronary angioplasty implant and graft; Z98.890 Other specified postprocedural states; Z87.19 Personal history of other diseases of the digestive system; Z95.0 Presence of cardiac pacemaker; Z87.891 Personal history of nicotine dependence; Z88.8 Allergy status to other drugs, medicaments and biological substances; Z79.02 Long term (current) use of antithrombotics/antiplatelets; Z79.811 Long term (current) use of aromatase inhibitors; Z79.899 Other long term (current) drug therapy; Z86.73 Personal history of transient ischemic attack (TIA), and cerebral infarction without residual deficits; Z79.01 Long term (current) use of anticoagulants; Z79.82 Long term (current) use of aspirin; Z99.3 Dependence on wheelchair; Z68.24 Body mass index [BMI] 24.0-24.9, adult
CPT/HCPCS: 36415; 71046; 80048; 80053; 80061; 84484; 85025; 85027; 85520; 85610; 85730; 93005; 93010; 94660; 94762; 96374; 99285-25; A9270; C8929; J1644; J1940; Q2036; Q9957

== ENCOUNTER 2024-05-27 10:02 | Inpatient (IN) | payer OTHER ==
[~2024-05-27] VITALS: Ht 177.8 cm; Wt 87.2 kg
[~2024-05-27 10:02] MED LIST changes: +FAMO20 PO; +FERROUS GLUCON324 M7 PO
[2024-05-27 11:00] LABS: BASOPHILS ABSOLUTE AUTO 0.03 K/mm3 (0.00-0.23); BASOPHILS PERCENT AUTO 1 % (0-2); EOSINOPHILS ABSOLUTE AUTO 0.08 K/mm3 (0.00-0.68); EOSINOPHILS PERCENT AUTO 1 % (0-6); Hematocrit 41.4 % (37.0-53.0); Hemoglobin 13.2 g/dL (13.5-17.5); IMMATURE GRAN ABSOLUTE AUTO 0.02 K/mm3 (0.00-0.10); IMMATURE GRAN PERCENT AUTO 0 % (0-1); LYMPHOCYTES PERCENT AUTO 9 % (21-46); MONOCYTES ABSOLUTE AUTO 0.54 K/mm3 (0.16-1.47); MONOCYTES PERCENT AUTO 8 % (4-13); Mean Corpuscular HGB 28.1 pg (26.0-34.0); Mean Corpuscular HGB Conc 31.9 g/dL (31.5-36.5); Mean Corpuscular Volume 88 fL (80-100); Mean Platelet Volume 10.7 fL (9.1-12.4); NEUTROPHILS ABSOLUTE AUTO 5.17 K/mm3 (1.96-9.15); NEUTROPHILS PERCENT AUTO 80 % (41-73); Platelet Count 121 K/mm3 (150-400); RDW Coefficient Variation 16.2 % (11.7-14.2); White Blood Cell Count 6.44 K/mm3 (4.00-11.30)
[2024-05-27 11:38] LABS: Albumin/Globulin Ratio 0.8 (0.8-1.8); Bilirubin, Total 0.5 mg/dL (0.1-1.0); Bun/Creatinine Ratio 29.4 (12.0-20.0); Calcium, Blood 8.1 mg/dL (8.5-10.1); Creatinine, Blood 1.36 mg/dL (0.60-1.20); Potassium, Blood 5.3 mmol/L (3.5-5.5)
[2024-05-27] MEDS ORDERED: Nitroglycerin 0.4 MG SUBL SL PRN (15:05)
[2024-05-27] MEDS ORDERED: Acetaminophen 325 MG TABLET PO PRN (15:05)
[2024-05-27 15:18] LABS: International Normalized Ratio 1.04; Prothrombin Time Results 11.1 Sec (9.7-11.5)
[2024-05-27 15:19] LABS: Anti-Xa UFH, PHA Monitoring <0.10 IU/mL
[2024-05-27] MEDS ORDERED: Heparin Sodium,Porcine/0.5 NS 500 ML IV SCH (15:25)
[2024-05-27] MEDS ORDERED: Lactated Ringer's 1,000 ML IV SCH (16:00)
[2024-05-27 17:10] VITALS: BP 160/62
--- NOTE | 2024-05-27 18:05 | NUR ---
THE PT WAS A NEW ADMIT THIS EVENING. HE IS A&OX4, AND IS ABLE TO MAKE HIS NEEDS KNOWN. HE CAME UP ON A HEP GTT AND IT WAS VERIFIED WITH MYRANDA ZAMORA. PIV IN RAC, PATENT AND INFUSING PER EMAR. THE PT'S VS ARE STABLE. ON TELE HE IS PACED IN THE 60S. HE REMAINS ON RA W/ SP02 >90%. THE PT STATES HE WEARS A CPAP AT NIGHT FOR ROCHELLE. HE STATED HE HAS NOT BEEN WEARING IT FOR A FEW DAYS BECAUSE HE NEEDS A NEW MASK. THE PT IS DRINKING WATER, AND TOLERATING IT WELL. HIS IV FLUIDS ARE ON HOLD AT THIS TIME PER DR. HOLLY BECAUSE THE PT IS CONSUMING PO FLUIDS WELL. SEE NOTES FOR ANY UPDATES.
[2024-05-27 19:53] VITALS: BP 155/81
[2024-05-27] MEDS ORDERED: Dose Adjust by Pharmacy XX STA (22:45)
[2024-05-27 23:04] VITALS: BP 172/98
[2024-05-27 23:25] VITALS: BP 153/73
[2024-05-28 03:24] VITALS: BP 150/87
[2024-05-28 05:24] LABS: BASOPHILS ABSOLUTE AUTO 0.04 K/mm3 (0.00-0.23); BASOPHILS PERCENT AUTO 1 % (0-2); EOSINOPHILS ABSOLUTE AUTO 0.22 K/mm3 (0.00-0.68); EOSINOPHILS PERCENT AUTO 4 % (0-6); Hematocrit 42.6 % (37.0-53.0); Hemoglobin 13.6 g/dL (13.5-17.5); IMMATURE GRAN ABSOLUTE AUTO 0.02 K/mm3 (0.00-0.10); IMMATURE GRAN PERCENT AUTO 0 % (0-1); LYMPHOCYTES ABSOLUTE AUTO 1.16 K/mm3 (0.84-5.20); LYMPHOCYTES PERCENT AUTO 19 % (21-46); MONOCYTES ABSOLUTE AUTO 0.57 K/mm3 (0.16-1.47); MONOCYTES PERCENT AUTO 9 % (4-13); Mean Corpuscular HGB 28.2 pg (26.0-34.0); Mean Corpuscular HGB Conc 31.9 g/dL (31.5-36.5); Mean Corpuscular Volume 88 fL (80-100); Mean Platelet Volume 12.1 fL (9.1-12.4); NEUTROPHILS ABSOLUTE AUTO 4.11 K/mm3 (1.96-9.15); NEUTROPHILS PERCENT AUTO 67 % (41-73); Platelet Count 110 K/mm3 (150-400); RDW Coefficient Variation 16.1 % (11.7-14.2); RDW Standard Deviation 52.1 fL (35.1-46.3); Red Blood Cell Count 4.83 M/mm3 (4.30-5.90); White Blood Cell Count 6.12 K/mm3 (4.00-11.30)
--- NOTE | 2024-05-28 05:30 | NUR ---
SHIFT SUMMARY THIS RN ASSUMED CARE AT APPROX 1915. PATIENT ALERT AND ORIENTED X4. COOPERATIVE WITH CARE, COMMUNICATES NEEDS EFFECTIVELY. SLEPT T/O NIGHT, EASILY AROUSABLE WITH VERBAL STIMULI. TELEMETRY SHOWING PACED 60s-70s. HTN NOTED, SBP 150s-170s. DENIES CHEST PAIN, PRESSURE. MILD SHORTNESS OF BREATH WITH ACTIVITY. TOLERATES ROOM AIR WHILE AWAKE. PLACED ON 3-4L VIA NC WITH SLEEP PATIENT DECLINING SET UP FOR CPAP MACHINE FOR ROCHELLE, REPORTS NONCOMPLIANCE WITH DEVICE AT HOME. USES URINAL INDEPENDENTLY, REPOSITIONS HIMSELF INDEPENDENTLY IN BED. IS A ONE PERSON ASSIST TO BSC, CHAIR. BED BATH PERFORMED. CALL LIGHT IN REACH. WILL CONTINUE TO MONITOR AND REPORT TO ONCOMING RN.
[2024-05-28] MEDS ORDERED: Dose Adjust by Pharmacy XX STA ×3 (05:46→19:18)
[2024-05-28 05:52] LABS: Albumin/Globulin Ratio 0.8 (0.8-1.8); Bilirubin, Total 0.7 mg/dL (0.1-1.0); Bun/Creatinine Ratio 29.6 (12.0-20.0); Calcium, Blood 8.5 mg/dL (8.5-10.1); Creatinine, Blood 1.25 mg/dL (0.60-1.20); Globulin, Blood 3.7 g/dL (2.2-4.0); Potassium, Blood 4.5 mmol/L (3.5-5.5); Total Protein, Blood 6.7 g/dL (6.4-8.2)
[2024-05-28 08:34] VITALS: BP 164/107
--- NOTE | 2024-05-28 08:36 | NUR ---
Pt c/o chest discomfort, states a regular occurance at home, right after eating breakfast and lying down. STates improved quite a bit to 2/10 with sitting up on side of bed, and belching. Oral meds given one at a time with yogurt, and pt states easier than taking with water. Encouraged this practice to continue at home as well. Recommended that pt sit up after finishing meals.
[2024-05-28] MEDS ORDERED: Clopidogrel Bisulfate 75 MG Tab PO SCH (09:00)
[2024-05-28] MEDS ORDERED: Aspirin 81 MG Chew PO SCH (09:00)
[2024-05-28] MEDS ORDERED: Atorvastatin 40 MG Tab PO SCH (09:00)
[2024-05-28] MEDS ORDERED: Isosorbide Mononitrate 60 MG TABCR PO SCH (09:00)
[2024-05-28] MEDS ORDERED: Metoprolol Succinate 50 MG TABCR PO SCH (09:00)
[2024-05-28 11:52] VITALS: BP 113/69
--- NOTE | 2024-05-28 15:29 | NUR ---
Upon receiving a referral for spiritual care, I visited the patient. The patient tells me about his medical history and the plan of care moving forward. He talks about his family, his Gnosticism precious and his discharge home. I provided therapeutic listening and prayer. Patient responded well and showed signs of an elevated mood.
[2024-05-28 16:47] VITALS: BP 135/71
[2024-05-28 19:29] VITALS: BP 141/65
[2024-05-28] MEDS ORDERED: Tamsulosin HCl 0.4 MG Cap PO SCH (21:00)
[2024-05-28 23:22] VITALS: BP 152/78
[2024-05-29 03:47] LABS: BASOPHILS ABSOLUTE AUTO 0.03 K/mm3 (0.00-0.23); BASOPHILS PERCENT AUTO 1 % (0-2); EOSINOPHILS ABSOLUTE AUTO 0.17 K/mm3 (0.00-0.68); EOSINOPHILS PERCENT AUTO 3 % (0-6); Hematocrit 42.1 % (37.0-53.0); Hemoglobin 13.5 g/dL (13.5-17.5); IMMATURE GRAN ABSOLUTE AUTO 0.03 K/mm3 (0.00-0.10); IMMATURE GRAN PERCENT AUTO 1 % (0-1); LYMPHOCYTES ABSOLUTE AUTO 0.82 K/mm3 (0.84-5.20); LYMPHOCYTES PERCENT AUTO 13 % (21-46); MONOCYTES ABSOLUTE AUTO 0.64 K/mm3 (0.16-1.47); MONOCYTES PERCENT AUTO 10 % (4-13); Mean Corpuscular HGB 28.2 pg (26.0-34.0); Mean Corpuscular HGB Conc 32.1 g/dL (31.5-36.5); Mean Corpuscular Volume 88 fL (80-100); Mean Platelet Volume 12.3 fL (9.1-12.4); NEUTROPHILS ABSOLUTE AUTO 4.79 K/mm3 (1.96-9.15); NEUTROPHILS PERCENT AUTO 74 % (41-73); Platelet Count 122 K/mm3 (150-400); RDW Coefficient Variation 16.2 % (11.7-14.2); RDW Standard Deviation 51.9 fL (35.1-46.3); Red Blood Cell Count 4.79 M/mm3 (4.30-5.90); White Blood Cell Count 6.48 K/mm3 (4.00-11.30)
[2024-05-29 04:02] VITALS: BP 168/86
[2024-05-29 04:05] LABS: Bun/Creatinine Ratio 28.1 (12.0-20.0); Calcium, Blood 8.6 mg/dL (8.5-10.1); Creatinine, Blood 1.14 mg/dL (0.60-1.20); Potassium, Blood 4.2 mmol/L (3.5-5.5)
[2024-05-29 04:10] VITALS: BP 133/73
--- NOTE | 2024-05-29 04:42 | NUR ---
SHIFT SUMMARY THIS RN ASSUMED CARE AT APPROX 1915. PATIENT ALERT AND ORIENTED X4. COMMUNICATING NEEDS EFFECTIVELY. TELEMETRY SHOWING PACED 60s-70s. HTN NOTED AT TIMES, SBP 130s-160s. DENIES CHEST PAIN, PRESSURE T/O NIGHT. MILD SHORTNESS OF BREATH WITH ACTIVITY, IMPROVES WITH REST. WHILE AWAKE, ON ROOM AIR. SATs >90%. RT TO BEDSIDE TO SET UP CPAP DEVICE FOR USE WITH SLEEP - PATIENT UNABLE TO TOLERATE USE OF DEVICE. EDUCATION PROVIDED. PLACED ON 3L VIA NC. MALE PUREWICK IN PLACE, DRAINING VALENTIN URINE TO SUCTION. Q2H REPOSITIONING. ONE PERSON ASSIST WITH MOBILITY. CALL LIGHT IN REACH. WILL CONTINUE TO MONITOR AND REPORT TO ONCOMING RN.
[2024-05-29] MEDS ORDERED: Dose Adjust by Pharmacy XX STA (04:56)
[2024-05-29 07:57] VITALS: BP 178/99
[2024-05-29] MEDS ORDERED: Isosorbide Mononitrate 60 MG TABCR PO SCH (09:00)
[2024-05-29] MEDS ORDERED: Eplerenone 25 MG Tab PO SCH (09:00)
[2024-05-29] MEDS ORDERED: Phenylephrine HCl 20 MG in NS 250 ML IV SCH (10:45)
[2024-05-29 12:26] VITALS: BP 139/97
[2024-05-29] MEDS ORDERED: EPLE25 PO (15:18)
[2024-05-29] MEDS ORDERED: Isosorbide Mono30 MG PO (15:18)
== END 2024-05-29 17:21 | disposition home or self-care (01) | DRG 281 ==
LOC: ER 10:02 → PCU 10:03 → ERHOLD 10:03 → PCU 17:01
PROVIDERS: Emergency Medicine; Family Medicine; ADMIT Hospitalist
DX: I21.4 Non-ST elevation (NSTEMI) myocardial infarction (principal); I13.0 Hypertensive heart and chronic kidney disease with heart failure and stage 1 through stage 4 chronic kidney disease, or unspecified chronic kidney disease; I50.22 Chronic systolic (congestive) heart failure; N18.30 Chronic kidney disease, stage 3 unspecified; I25.10 Atherosclerotic heart disease of native coronary artery without angina pectoris; E78.5 Hyperlipidemia, unspecified; I48.0 Paroxysmal atrial fibrillation; I25.5 Ischemic cardiomyopathy; R00.0 Tachycardia, unspecified; M10.9 Gout, unspecified; K21.9 Gastro-esophageal reflux disease without esophagitis; E78.00 Pure hypercholesterolemia, unspecified; G47.33 Obstructive sleep apnea (adult) (pediatric); I73.9 Peripheral vascular disease, unspecified; Z87.19 Personal history of other diseases of the digestive system; Z98.890 Other specified postprocedural states; Z95.1 Presence of aortocoronary bypass graft; Z95.5 Presence of coronary angioplasty implant and graft; Z88.8 Allergy status to other drugs, medicaments and biological substances; Z79.899 Other long term (current) drug therapy; Z79.51 Long term (current) use of inhaled steroids; Z79.82 Long term (current) use of aspirin; Z79.2 Long term (current) use of antibiotics; Z87.891 Personal history of nicotine dependence; Z95.2 Presence of prosthetic heart valve
CPT/HCPCS: 36415; 71045; 80048; 80053; 84484; 85025; 85520; 85610; 85730; 93005; 93010; 94660; 94762; 96365; 96366; 99285-25; A9270; C8929; G0378; J1644; J7120; Q9957